=== PATIENT | female | born 1945 | race Caucasian/White ===

== ENCOUNTER 2023-08-09 20:10 | Inpatient (IN) | payer MEDICARE, BC ==
[~2023-08-09] VITALS: Ht 167.6 cm; Wt 97.5 kg
[2023-08-09 20:42] LABS: BASOPHILS # (AUTO) 0.1 X10'3 (0-0.2); EOSINOPHILS # (AUTO) 0.2 X10'3 (0-0.9); EOSINOPHILS % (AUTO) 3.2 % (0-6); HEMOGLOBIN 10.8 g/dl (12.0-16.0); LYMPHOCYTES # (AUTO) 0.7 X10'3 (1.1-4.8); LYMPHOCYTES % (AUTO) 9.5 % (21-51); MEAN CORPUSCULAR HEMOGLOBIN 30.3 PG (27.0-31.0); MEAN CORPUSCULAR HGB CONC 32.8 g/dL (33.0-36.5); MEAN CORPUSCULAR VOLUME 92.4 FL (78-98); MEAN PLATELET VOLUME 8.7 FL (7.4-10.4); MONOCYTES # (AUTO) 0.7 X10'3 (0-0.9); MONOCYTES % (AUTO) 10.3 % (2-12); NEUTROPHILS # (AUTO) 5.5 X10'3 (1.8-7.7); PLATELET COUNT 252 X10'3 (140-440); RED BLOOD COUNT 3.57 X10'6 (4.20-5.60); WHITE BLOOD COUNT 7.2 X10'3 (4.5-11.0)
[2023-08-09 20:55] LABS: ALANINE AMINOTRANSFERASE 14 U/L (12-78); ALBUMIN 3.2 G/DL (3.4-5.0); ALBUMIN/GLOBULIN RATIO 0.9 (1.1-1.5); ALKALINE PHOSPHATASE 58 IU/L (46-116); ANION GAP 12 (8-16); ASPARTATE AMINO TRANSFERASE 14 U/L (10-37); BILIRUBIN,TOTAL 0.5 MG/DL (0.1-1.0); BLOOD UREA NITROGEN 77 MG/DL (7-18); BUN/CREATININE RATIO 27.8 (10.0-20.0); CALCIUM 8.1 MG/DL (8.5-10.1); CHLORIDE 111 MMOL/L (99-107); CREATININE 2.77 MG/DL (0.40-0.90); GLUCOSE 161 MG/DL (70-104); POTASSIUM 4.1 MMOL/L (3.5-5.1); SODIUM 145 MMOL/L (135-145); TOTAL CARBON DIOXIDE 22.1 MMOL/L (24-32); TOTAL PROTEIN 6.7 G/DL (6.4-8.2); eCRCL 16 ML/MIN; eGFR 17 ML/MIN
[2023-08-09 21:03] LABS: AMYLASE 77 U/L (25-115); LIPASE 139 U/L (16-77)
[2023-08-10] MEDS: albuterol 2.5 MG/3 ML nebule NEB ONE (09:25)
[2023-08-10] MEDS: normal saline 1000ML IV soln IVB ONE (09:43)
[2023-08-10] MEDS: ondansetron/PF 4mg/2ml inj IV ONE (09:45)
[2023-08-10] MEDS: morphine 2 MG/ML inj. syringe IV ONE (09:46)
[2023-08-10] MEDS: aspirin 81mg tab.chew PO ONE ×2 (09:49→22:07)
[2023-08-10 11:03] VITALS: PULSE 72; PULSE 73; RESP 20; RESP 24; O2SAT 98
[2023-08-10 11:10] LABS: ALANINE AMINOTRANSFERASE 13 U/L (12-78); ALBUMIN/GLOBULIN RATIO 0.9 (1.1-1.5); ALKALINE PHOSPHATASE 53 IU/L (46-116); ASPARTATE AMINO TRANSFERASE 13 U/L (10-37); BILIRUBIN,DIRECT 0.2 MG/DL (0-0.3); BILIRUBIN,TOTAL 0.5 MG/DL (0.1-1.0); MAGNESIUM 2.3 MG/DL (1.5-2.4); PHOSPHORUS 4.9 MG/DL (2.3-4.5); TOTAL PROTEIN 6.3 G/DL (6.4-8.2)
[2023-08-10] MEDS ORDERED: magnesium 4gm in 100ml NS 100 ML IV PRN (11:15)
[2023-08-10] MEDS ORDERED: potassium Cl 20 mEq SR tablet PO PRN ×2 (11:15)
[2023-08-10] MEDS ORDERED: magnesium hydroxide 30ml (MOM) UD suspension PO PRN (11:15)
[2023-08-10] MEDS ORDERED: magnesium Cl slow-release 64mg tablet PO PRN (11:15)
[2023-08-10] MEDS ORDERED: normal saline 1000ml 1,000 ML IV SCH (11:15)
[2023-08-10] MEDS ORDERED: magnesium 2GM in 50ml NS 50 ML IV PRN (11:15)
[2023-08-10] MEDS ORDERED: potassium Cl 40MEQ/1/2NS 520ml 520 ML IV PRN (11:15)
[2023-08-10] MEDS ORDERED: HYDROcodone/acetaminophen 5mg/325mg tablet PO PRN (11:15)
[2023-08-10 11:53] LABS: PRO BRAIN NATRIURETIC PEPTIDE > 30000 PG/ML (0-450)
[2023-08-10 12:31] LABS: BILIRUBIN,URINE NEGATIVE (Neg); CLARITY,URINE CLOUDY (Clear); COLOR,URINE YELLOW (Yellow); GLUCOSE, URINE NEGATIVE (Neg); KETONES,URINE NEGATIVE (Neg); LEUKOCYTE ESTERASE ,URINE NEGATIVE (Neg); NITRITES, URINE NEGATIVE (Neg); OCCULT BLOOD,URINE TRACE-INTACT (Neg); PH,URINE 5.5 (4.8-8.0); PROTEIN,URINE 100 mg/dl (Neg); UROBILINOGEN,URINE 0.2 E.U/dL (0.2-1.0)
[2023-08-10 12:33] LABS: UA COLLECTION TYPE VOIDED
[2023-08-10 12:38] LABS: MUCUS STRANDS FEW /LPF (Neg); SQUAMOUS EPITHELIAL CELL,UR MANY /LPF (FEW)
[2023-08-10 12:39] LABS: BACTERIA,URINE 3+ /HPF (Neg); RBC,URINE 0-2 /HPF (0-2); WBC,URINE 0-4 /HPF (0-4)
[2023-08-10] MEDS ORDERED: albuterol 2.5 MG/3 ML nebule NEB PRN (12:45)
[2023-08-10 13:17] LABS: POTASSIUM 4.3 MMOL/L (3.5-5.1)
[2023-08-10] MEDS: furosemide 10 MG/1 ML 10ml inj IV ONE (13:44)
[2023-08-10] MEDS ORDERED: METO-395 PO (15:49)
[2023-08-10] MEDS ORDERED: FURO20TA4 PO (15:49)
[2023-08-10] MEDS ORDERED: APIX5TAB3 PO (15:49)
[2023-08-10] MEDS ORDERED: LISI10TA27 PO (15:49)
[2023-08-10] MEDS ORDERED: EVOL140P3 SQ (15:52)
[2023-08-10] MEDS ORDERED: LINA5TAB4 PO (15:52)
[2023-08-10] MEDS ORDERED: CHOL100012 PO (15:55)
[2023-08-10] MEDS ORDERED: CYAN-34 PO (15:55)
[2023-08-10] MEDS: docusate sod 100mg capsule PO SCH (20:00)
[2023-08-10] MEDS: K and/or MAG REPLACEMENT MC SCH (20:18)
[2023-08-10 20:19] VITALS: PULSE 83; RESP 20; O2SAT 96
[2023-08-10] MEDS: DOBUTamine-DoBUTrex 500mg/D5W 250 ML IV SCH ×2 (20:35→21:33)
[2023-08-10] MEDS: furosemide 10 MG/1 ML 10ml inj IV SCH (20:35)
[2023-08-10] MEDS: heparin, porcine 5000 units/ml vial SQ SCH (20:36)
[2023-08-10] MEDS: normal saline 500ml IV soln 500 ML IV ONE (21:39)
[2023-08-10] MEDS: ondansetron/PF 4mg/2ml inj IV PRN (21:52)
[2023-08-10] MEDS: digoxin 250mcg/ml 2ml ampule IV ONE (22:15)
[2023-08-10] MEDS ORDERED: albumin (human) 25% 100ml IV 100 ML in dextrose 5% water 500ml 400 ML IV ONE (22:15)
[2023-08-10] MEDS ORDERED: LIDOcaine 2% 10ml TOPICAL JELLY (Urojet) TP ONE (22:15)
[2023-08-10] MEDS: methylPREDNISolone sod succ 125mg/2ml vial IV ONE (22:20)
[2023-08-10] MEDS: ipratropium/albuterol 3ml nebule NEB SCH (23:00)
[2023-08-10] MEDS: albumin (Human) 5% 250ml 250 ML IV ONE (23:29)
[2023-08-10] MEDS: CefTRIAXone/D5W-Rocephin 1gm 50 ML IV SCH (23:29)
[2023-08-11 00:01] LABS: APTT 26 SECONDS (22-32); PROTHROMBIN TIME 11.1 SECONDS (9.0-12.0)
[2023-08-11] MEDS: albumin (Human) 5% 250ml 250 ML IV ONE (00:01)
[2023-08-11 00:55] LABS: C-REACTIVE PROTEIN 1.38 MG/DL (0.0-0.5); CREATINE KINASE 51 U/L (26-192); LACTATE DEHYDROGENASE 203 U/L (81-234); LIPASE 131 U/L (16-77); URIC ACID 10.6 MG/DL (2.5-6.2)
[2023-08-11 01:47] LABS: PRO BRAIN NATRIURETIC PEPTIDE > 30000 PG/ML (0-450)
[2023-08-11 03:04] VITALS: PULSE 70; RESP 16; O2SAT 96
[2023-08-11 03:11] VITALS: PULSE 72; RESP 16
[2023-08-11 06:02] LABS: BILIRUBIN,URINE NEGATIVE (Neg); CLARITY,URINE SLIGHTLY CLOUDY (Clear); COLOR,URINE STRAW (Yellow); GLUCOSE, URINE NEGATIVE (Neg); KETONES,URINE NEGATIVE (Neg); LEUKOCYTE ESTERASE ,URINE NEGATIVE (Neg); NITRITES, URINE NEGATIVE (Neg); OCCULT BLOOD,URINE NEGATIVE (Neg); PROTEIN,URINE 30 mg/dl (Neg); UROBILINOGEN,URINE 0.2 E.U/dL (0.2-1.0)
[2023-08-11 06:08] LABS: UA COLLECTION TYPE CLN CATCH MIDSTREAM
[2023-08-11 06:09] LABS: BACTERIA,URINE 3+ /HPF (Neg); MUCUS STRANDS NONE SEEN /LPF (Neg); RBC,URINE NONE SEEN /HPF (0-2); SQUAMOUS EPITHELIAL CELL,UR MODERATE /LPF (FEW); WBC,URINE 0-4 /HPF (0-4)
[2023-08-11 06:35] LABS: BASOPHILS % (AUTO) 0.4 % (0-1); EOSINOPHILS % (AUTO) 0.1 % (0-6); HEMATOCRIT 32.3 % (35.0-45.0); HEMOGLOBIN 10.4 g/dl (12.0-16.0); LYMPHOCYTES # (AUTO) 0.2 X10'3 (1.1-4.8); MEAN CORPUSCULAR HEMOGLOBIN 29.9 PG (27.0-31.0); MEAN CORPUSCULAR VOLUME 93.3 FL (78-98); MEAN PLATELET VOLUME 8.8 FL (7.4-10.4); MONOCYTES # (AUTO) 0.1 X10'3 (0-0.9); MONOCYTES % (AUTO) 1.7 % (2-12); NEUTROPHILS # (AUTO) 3.8 X10'3 (1.8-7.7); NEUTROPHILS % (AUTO) 91.8 % (42-75); PLATELET COUNT 250 X10'3 (140-440); RED BLOOD COUNT 3.46 X10'6 (4.20-5.60); RED CELL DISTRIBUTION WIDTH 16.3 % (11.5-14.5); WHITE BLOOD COUNT 4.1 X10'3 (4.5-11.0)
[2023-08-11 06:46] LABS: ALANINE AMINOTRANSFERASE 14 U/L (12-78); ALBUMIN 3.2 G/DL (3.4-5.0); ALKALINE PHOSPHATASE 50 IU/L (46-116); ANION GAP 13 (8-16); ASPARTATE AMINO TRANSFERASE 12 U/L (10-37); BILIRUBIN,TOTAL 0.3 MG/DL (0.1-1.0); BLOOD UREA NITROGEN 80 MG/DL (7-18); BUN/CREATININE RATIO 28.7 (10.0-20.0); CALCIUM 8.3 MG/DL (8.5-10.1); CHLORIDE 113 MMOL/L (99-107); CHOL/HDL RATIO 2.2 (0.00-4.99); CHOLESTEROL 76 MG/DL (0-200); CREATININE 2.79 MG/DL (0.40-0.90); GLUCOSE 186 MG/DL (70-104); HDL CHOLESTEROL 34 MG/DL (35-60); LDL CHOLESTEROL 29 MG/DL (50-100); MAGNESIUM 2.2 MG/DL (1.5-2.4); PHOSPHORUS 5.4 MG/DL (2.3-4.5); POTASSIUM 5.1 MMOL/L (3.5-5.1); SODIUM 147 MMOL/L (135-145); TOTAL CARBON DIOXIDE 21.1 MMOL/L (24-32); TOTAL PROTEIN 6.5 G/DL (6.4-8.2); TRIGLYCERIDES 56 MG/DL (20-135); eCRCL 16 ML/MIN; eGFR 17 ML/MIN
[2023-08-11 06:48] LABS: APTT 27 SECONDS (22-32)
[2023-08-11] MEDS: LidoCAINE 2% Topical Jelly 11mL syringe TOP ONE (07:53)
[2023-08-11] MEDS: azithromycin/NS 500mg/250ml 250 ML IV SCH (08:00)
[2023-08-11] MEDS: furosemide 20 MG/2 ML vial IV SCH (08:15)
[2023-08-11] MEDS: DOBUTamine-DoBUTrex 500mg/D5W 250 ML IV SCH ×3 (11:30→22:29)
[2023-08-11] MEDS: furosemide 10 MG/1 ML 10ml inj IV SCH (17:00)
[2023-08-11] MEDS: furosemide 20 MG/2 ML vial IV ONE (17:51)
[2023-08-11] MEDS: amiodarone 200mg tablet PO SCH (18:27)
[2023-08-11 19:44] VITALS: PULSE 74; RESP 26; O2SAT 96
[2023-08-11] MEDS: apixaban 5mg tablet PO SCH (20:00)
[2023-08-11] MEDS: metoprolol succinate 25mg (24-HOUR) SR. Tablet PO SCH (20:00)
[2023-08-11] MEDS: furosemide 10 MG/1 ML 10ml inj IV ONE (21:00)
[2023-08-11 21:40] LABS: ALANINE AMINOTRANSFERASE 15 U/L (12-78); ALKALINE PHOSPHATASE 46 IU/L (46-116); ANION GAP 14 (8-16); ASPARTATE AMINO TRANSFERASE 9 U/L (10-37); BILIRUBIN,TOTAL 0.3 MG/DL (0.1-1.0); BLOOD UREA NITROGEN 79 MG/DL (7-18); BUN/CREATININE RATIO 28.9 (10.0-20.0); CALCIUM 8.1 MG/DL (8.5-10.1); CHLORIDE 113 MMOL/L (99-107); CREATININE 2.73 MG/DL (0.40-0.90); GLUCOSE 238 MG/DL (70-104); POTASSIUM 4.9 MMOL/L (3.5-5.1); SODIUM 147 MMOL/L (135-145); TOTAL CARBON DIOXIDE 20.2 MMOL/L (24-32); TOTAL PROTEIN 6.1 G/DL (6.4-8.2); eCRCL 17 ML/MIN; eGFR 17 ML/MIN
[2023-08-11] MEDS: amiodarone 150mg/dext, iso-os 100 ML IV ONE (21:45)
[2023-08-11] MEDS: amiodarone/D5 360MG/200ML BAG 200 ML IV SCH (22:08)
[2023-08-12] VITALS (20 sets, daily range): BP systolic 108–135; BP diastolic 54–66; PULSE 70–98; RESP 16–25; TEMP 97.6–98.2; O2SAT 94–98
[2023-08-12] MEDS: acetaminophen 325mg tablet PO PRN (04:41)
[2023-08-12 06:51] LABS: BASOPHILS % (AUTO) 0.4 % (0-1); EOSINOPHILS % (AUTO) 0 % (0-6); HEMATOCRIT 29.6 % (35.0-45.0); HEMOGLOBIN 9.6 g/dl (12.0-16.0); LYMPHOCYTES # (AUTO) 0.5 X10'3 (1.1-4.8); LYMPHOCYTES % (AUTO) 6.5 % (21-51); MEAN CORPUSCULAR HEMOGLOBIN 29.8 PG (27.0-31.0); MEAN CORPUSCULAR HGB CONC 32.3 g/dL (33.0-36.5); MEAN CORPUSCULAR VOLUME 92.2 FL (78-98); MEAN PLATELET VOLUME 9.1 FL (7.4-10.4); MONOCYTES # (AUTO) 0.7 X10'3 (0-0.9); MONOCYTES % (AUTO) 8.3 % (2-12); NEUTROPHILS % (AUTO) 84.8 % (42-75); PLATELET COUNT 246 X10'3 (140-440); RED BLOOD COUNT 3.21 X10'6 (4.20-5.60); RED CELL DISTRIBUTION WIDTH 15.6 % (11.5-14.5); WHITE BLOOD COUNT 8.2 X10'3 (4.5-11.0)
[2023-08-12 07:06] LABS: APTT 27 SECONDS (22-32); PROTHROMBIN TIME 11.1 SECONDS (9.0-12.0)
[2023-08-12 07:28] LABS: ALANINE AMINOTRANSFERASE 11 U/L (12-78); ALKALINE PHOSPHATASE 42 IU/L (46-116); ANION GAP 14 (8-16); ASPARTATE AMINO TRANSFERASE 7 U/L (10-37); BILIRUBIN,TOTAL 0.2 MG/DL (0.1-1.0); BLOOD UREA NITROGEN 75 MG/DL (7-18); BUN/CREATININE RATIO 27.4 (10.0-20.0); CALCIUM 8.2 MG/DL (8.5-10.1); CHLORIDE 112 MMOL/L (99-107); CREATININE 2.74 MG/DL (0.40-0.90); GLUCOSE 204 MG/DL (70-104); MAGNESIUM 2.1 MG/DL (1.5-2.4); PHOSPHORUS 4.2 MG/DL (2.3-4.5); POTASSIUM 4.6 MMOL/L (3.5-5.1); SODIUM 145 MMOL/L (135-145); TOTAL CARBON DIOXIDE 18.6 MMOL/L (24-32); eCRCL 17 ML/MIN; eGFR 17 ML/MIN
[2023-08-12] MEDS: lisinopril 10 MG tablet PO SCH (07:34)
[2023-08-12] MEDS: HYDROcodone/acetaminophen 10/325mg tab PO PRN (07:34)
[2023-08-12] MEDS: cyanocobalamin 500mcg tablet PO SCH (07:35)
[2023-08-12] MEDS: cholecalciferol (vitamin D3) 1,000 unit (25mcg) tablet PO SCH (07:35)
[2023-08-12] MEDS: ketorolac tromethamine 15mg/ml inj. IM ONE ×2 (10:35→11:27)
[2023-08-12] MEDS: furosemide 10 MG/1 ML 10ml inj IV SCH (10:37)
[2023-08-12] MEDS ORDERED: ipratropium/albuterol 3ml nebule NEB PRN (11:55)
[2023-08-12] MEDS ORDERED: ketorolac tromethamine 15mg/ml inj. IV SCH ×2 (14:00)
[2023-08-12] MEDS: ketorolac tromethamine 15mg/ml inj. IV SCH (17:26)
[2023-08-12] MEDS: heparin, porcine 5000 units/ml vial SQ SCH (17:47)
[2023-08-12] MEDS: amiodarone/D5 360MG/200ML BAG 200 ML IV SCH (17:52)
[2023-08-13] VITALS (8 sets, daily range): BP systolic 107–131; BP diastolic 51–69; PULSE 67–88; RESP 14–18; TEMP 97.3–98.7; O2SAT 92–98
[2023-08-13] MEDS: mag hydrox/Alum hydrox/simeth 30ml oral suspension PO PRN (02:13)
[2023-08-13 06:57] LABS: APTT 27 SECONDS (22-32); PROTHROMBIN TIME 10.9 SECONDS (9.0-12.0)
[2023-08-13 07:40] LABS: ALANINE AMINOTRANSFERASE 13 U/L (12-78); ALBUMIN 3.4 G/DL (3.4-5.0); ALBUMIN/GLOBULIN RATIO 1.1 (1.1-1.5); ALKALINE PHOSPHATASE 47 IU/L (46-116); ANION GAP 7 (8-16); ASPARTATE AMINO TRANSFERASE 11 U/L (10-37); BILIRUBIN,TOTAL 0.4 MG/DL (0.1-1.0); BLOOD UREA NITROGEN 88 MG/DL (7-18); BUN/CREATININE RATIO 28.2 (10.0-20.0); CALCIUM 9.2 MG/DL (8.5-10.1); CHLORIDE 114 MMOL/L (99-107); CREATININE 3.12 MG/DL (0.40-0.90); GLUCOSE 125 MG/DL (70-104); MAGNESIUM 2.7 MG/DL (1.5-2.4); PHOSPHORUS 5.4 MG/DL (2.3-4.5); PRO BRAIN NATRIURETIC PEPTIDE 571 PG/ML (0-450); SODIUM 146 MMOL/L (135-145); TOTAL CARBON DIOXIDE 24.7 MMOL/L (24-32); TOTAL PROTEIN 6.5 G/DL (6.4-8.2); eCRCL 15 ML/MIN; eGFR 15 ML/MIN
[2023-08-13 07:46] LABS: BASOPHILS # (AUTO) 0.1 X10'3 (0-0.2); BASOPHILS % (AUTO) 1.1 % (0-1); EOSINOPHILS # (AUTO) 0.2 X10'3 (0-0.9); EOSINOPHILS % (AUTO) 2.8 % (0-6); HEMATOCRIT 33.7 % (35.0-45.0); HEMOGLOBIN 10.4 g/dl (12.0-16.0); LYMPHOCYTES # (AUTO) 1.4 X10'3 (1.1-4.8); MEAN CORPUSCULAR HEMOGLOBIN 29.6 PG (27.0-31.0); MEAN CORPUSCULAR HGB CONC 30.9 g/dL (33.0-36.5); MEAN CORPUSCULAR VOLUME 95.8 FL (78-98); MEAN PLATELET VOLUME 8.5 FL (7.4-10.4); MONOCYTES # (AUTO) 0.6 X10'3 (0-0.9); MONOCYTES % (AUTO) 7.1 % (2-12); NEUTROPHILS # (AUTO) 6.3 X10'3 (1.8-7.7); PLATELET COUNT 264 X10'3 (140-440); RED BLOOD COUNT 3.52 X10'6 (4.20-5.60); WHITE BLOOD COUNT 8.7 X10'3 (4.5-11.0)
[2023-08-13] MEDS: EVOLOCUMAB SQ SCH (08:00)
[2023-08-13] MEDS: DOBUTamine-DoBUTrex 500mg/D5W 250 ML IV SCH (09:08)
[2023-08-13] MEDS: sodium bicarbonate 1meq/ml inj 150 ML in dextrose 5%-water 1,000 ML IV SCH (12:40)
[2023-08-13] MEDS: amiodarone 200mg tablet PO SCH (15:15)
[2023-08-13 17:08] LABS: TOTAL PROTEIN,URINE RANDOM 61.5 MG/DL
[2023-08-13] MEDS ORDERED: amiodarone 200mg tablet PO SCH (20:00)
[2023-08-13] MEDS: acetylcysteine 200 MG/ml 4ml vial PO SCH (21:43)
[2023-08-14] VITALS (17 sets, daily range): BP systolic 122–149; BP diastolic 48–68; PULSE 61–77; RESP 16–24; TEMP 97.3–98.3; O2SAT 93–97
[2023-08-14 07:37] LABS: BASOPHILS # (AUTO) 0.1 X10'3 (0-0.2); EOSINOPHILS # (AUTO) 0.4 X10'3 (0-0.9); EOSINOPHILS % (AUTO) 4.7 % (0-6); HEMATOCRIT 31.2 % (35.0-45.0); LYMPHOCYTES # (AUTO) 0.9 X10'3 (1.1-4.8); LYMPHOCYTES % (AUTO) 10.5 % (21-51); MEAN CORPUSCULAR HEMOGLOBIN 29.5 PG (27.0-31.0); MEAN CORPUSCULAR VOLUME 92.1 FL (78-98); MEAN PLATELET VOLUME 9.1 FL (7.4-10.4); MONOCYTES # (AUTO) 0.8 X10'3 (0-0.9); NEUTROPHILS # (AUTO) 6.5 X10'3 (1.8-7.7); NEUTROPHILS % (AUTO) 74.8 % (42-75); PLATELET COUNT 266 X10'3 (140-440); PROTHROMBIN TIME 10.9 SECONDS (9.0-12.0); RED BLOOD COUNT 3.38 X10'6 (4.20-5.60); RED CELL DISTRIBUTION WIDTH 15.6 % (11.5-14.5); WHITE BLOOD COUNT 8.7 X10'3 (4.5-11.0)
[2023-08-14 08:05] LABS: ALANINE AMINOTRANSFERASE 12 U/L (12-78); ALBUMIN 2.9 G/DL (3.4-5.0); ALKALINE PHOSPHATASE 43 IU/L (46-116); ANION GAP 10 (8-16); ASPARTATE AMINO TRANSFERASE 10 U/L (10-37); BILIRUBIN,TOTAL 0.3 MG/DL (0.1-1.0); BLOOD UREA NITROGEN 69 MG/DL (7-18); BUN/CREATININE RATIO 25.1 (10.0-20.0); CALCIUM 8.1 MG/DL (8.5-10.1); CHLORIDE 110 MMOL/L (99-107); CREATININE 2.75 MG/DL (0.40-0.90); GLUCOSE 117 MG/DL (70-104); PHOSPHORUS 3.6 MG/DL (2.3-4.5); POTASSIUM 4.4 MMOL/L (3.5-5.1); SODIUM 144 MMOL/L (135-145); TOTAL CARBON DIOXIDE 24.1 MMOL/L (24-32); TOTAL PROTEIN 5.7 G/DL (6.4-8.2); eCRCL 17 ML/MIN; eGFR 17 ML/MIN
[2023-08-14] MEDS ORDERED: verapamil 2.5 mg/ml inj IV ONE (10:08)
[2023-08-14] MEDS ORDERED: LIDOcaine 1% (10mg/ml) 2ml vial ONE (10:08)
[2023-08-14] MEDS ORDERED: midazolam 1 mg/ML 2ml injection ONE (10:08)
[2023-08-14] MEDS ORDERED: fentaNYL/PF 50MCG/1 ML 2ML syringe ONE (10:08)
[2023-08-14] MEDS ORDERED: heparin 1,000unit/ml 10ml vial 10 ML ONE (10:09)
[2023-08-14] MEDS ORDERED: nitroGLYCERIN 500mcg/5mL D5W 5 ML IV ONE (10:09)
[2023-08-14] MEDS ORDERED: iohexol 350MG/ML 100ml bottle IV ONE (10:09)
[2023-08-14] MEDS ORDERED: iohexol 350 MG/ML 50ML vial IV ONE ×2 (10:09→12:06)
[2023-08-14 12:33] LABS: PRO BRAIN NATRIURETIC PEPTIDE > 30000 PG/ML (0-450)
[2023-08-14 12:40] LABS: ISTAT HGB ART 10.2 g/dl (12.0-16.0); ISTAT HGB MIX 9.5 g/dl (12.0-16.0); ISTAT Hct ART 30 %PCV (35-45); ISTAT Hct MIX 28 %PCV (35-45); ISTAT O2 SATURATION ARTERIAL 95 % (95-98); ISTAT O2 SATURATION MIX VENOUS 60 % (60-80); ISTAT SOURCE BLNK
[2023-08-15] VITALS (22 sets, daily range): BP systolic 104–146; BP diastolic 48–87; PULSE 67–83; RESP 12–27; TEMP 97.8–99; O2SAT 89–98
[2023-08-15 06:04] LABS: BASOPHILS % (AUTO) 0.6 % (0-1); EOSINOPHILS # (AUTO) 0.8 X10'3 (0-0.9); EOSINOPHILS % (AUTO) 9.7 % (0-6); HEMATOCRIT 33.1 % (35.0-45.0); HEMOGLOBIN 10.6 g/dl (12.0-16.0); LYMPHOCYTES # (AUTO) 0.9 X10'3 (1.1-4.8); LYMPHOCYTES % (AUTO) 10.5 % (21-51); MEAN CORPUSCULAR HEMOGLOBIN 29.1 PG (27.0-31.0); MEAN CORPUSCULAR HGB CONC 32.1 g/dL (33.0-36.5); MEAN CORPUSCULAR VOLUME 90.7 FL (78-98); MONOCYTES # (AUTO) 0.7 X10'3 (0-0.9); MONOCYTES % (AUTO) 8.8 % (2-12); NEUTROPHILS # (AUTO) 5.8 X10'3 (1.8-7.7); NEUTROPHILS % (AUTO) 70.4 % (42-75); PLATELET COUNT 267 X10'3 (140-440); RED BLOOD COUNT 3.65 X10'6 (4.20-5.60); RED CELL DISTRIBUTION WIDTH 15.6 % (11.5-14.5); WHITE BLOOD COUNT 8.2 X10'3 (4.5-11.0)
[2023-08-15 06:27] LABS: ALANINE AMINOTRANSFERASE 14 U/L (12-78); ALBUMIN/GLOBULIN RATIO 0.9 (1.1-1.5); ALKALINE PHOSPHATASE 48 IU/L (46-116); ANION GAP 8 (8-16); ASPARTATE AMINO TRANSFERASE 12 U/L (10-37); BILIRUBIN,TOTAL 0.5 MG/DL (0.1-1.0); BLOOD UREA NITROGEN 61 MG/DL (7-18); BUN/CREATININE RATIO 21.1 (10.0-20.0); CALCIUM 8.5 MG/DL (8.5-10.1); CHLORIDE 108 MMOL/L (99-107); CREATININE 2.89 MG/DL (0.40-0.90); GLUCOSE 131 MG/DL (70-104); MAGNESIUM 2.1 MG/DL (1.5-2.4); PHOSPHORUS 3.9 MG/DL (2.3-4.5); POTASSIUM 4.3 MMOL/L (3.5-5.1); SODIUM 145 MMOL/L (135-145); TOTAL CARBON DIOXIDE 29.4 MMOL/L (24-32); TOTAL PROTEIN 6.2 G/DL (6.4-8.2); eCRCL 16 ML/MIN; eGFR 16 ML/MIN
[2023-08-15 07:06] LABS: PRO BRAIN NATRIURETIC PEPTIDE > 30000 PG/ML (0-450)
[2023-08-15] MEDS: DOBUTamine-DoBUTrex 500mg/D5W 250 ML IV SCH (11:35)
[2023-08-16] VITALS (21 sets, daily range): BP systolic 116–147; BP diastolic 54–69; PULSE 68–82; RESP 12–26; TEMP 97.3–98.4; O2SAT 65–98
[2023-08-16] MEDS: morphine 2 MG/ML inj. syringe IV ONE (04:10)
[2023-08-16] MEDS: nitroGLYCERIN 0.4mg SUBLingual tab SL STA (04:31)
[2023-08-16 08:00] LABS: PRO BRAIN NATRIURETIC PEPTIDE > 30000 PG/ML (0-450)
[2023-08-16 08:41] LABS: ALBUMIN 2.9 G/DL (3.4-5.0); ANION GAP 9 (8-16); BLOOD UREA NITROGEN 54 MG/DL (7-18); BUN/CREATININE RATIO 19.6 (10.0-20.0); CALCIUM 8.3 MG/DL (8.5-10.1); CHLORIDE 107 MMOL/L (99-107); CREATININE 2.75 MG/DL (0.40-0.90); GLUCOSE 100 MG/DL (70-104); SODIUM 147 MMOL/L (135-145); TOTAL CARBON DIOXIDE 31.5 MMOL/L (24-32); eCRCL 17 ML/MIN; eGFR 17 ML/MIN
[2023-08-16] MEDS: pantoprazole 40mg Tablet.DR PO SCH (08:59)
[2023-08-16] MEDS: ondansetron 4mg rapidly disintigrating tab PO PRN (12:39)
[2023-08-16] MEDS ORDERED: IODIXANOL 320 MG/ML INFUS..BTL 100ML IV ONE (16:47)
[2023-08-17] VITALS (16 sets, daily range): BP systolic 99–133; BP diastolic 44–65; PULSE 66–92; RESP 12–24; TEMP 97.1–98.3; O2SAT 92–99
[2023-08-17] MEDS: LORazepam 0.5 MG tablet PO PRN (02:14)
[2023-08-17 09:18] LABS: BASOPHILS # (AUTO) 0.2 X10'3 (0-0.2); BASOPHILS % (AUTO) 3.1 % (0-1); EOSINOPHILS # (AUTO) 0.7 X10'3 (0-0.9); EOSINOPHILS % (AUTO) 8.4 % (0-6); HEMATOCRIT 30.1 % (35.0-45.0); HEMOGLOBIN 9.8 g/dl (12.0-16.0); LYMPHOCYTES # (AUTO) 0.8 X10'3 (1.1-4.8); LYMPHOCYTES % (AUTO) 9.8 % (21-51); MEAN CORPUSCULAR HEMOGLOBIN 29.6 PG (27.0-31.0); MEAN CORPUSCULAR HGB CONC 32.5 g/dL (33.0-36.5); MEAN CORPUSCULAR VOLUME 91.3 FL (78-98); MEAN PLATELET VOLUME 8.7 FL (7.4-10.4); MONOCYTES # (AUTO) 0.9 X10'3 (0-0.9); MONOCYTES % (AUTO) 11.4 % (2-12); NEUTROPHILS # (AUTO) 5.4 X10'3 (1.8-7.7); NEUTROPHILS % (AUTO) 67.3 % (42-75); PLATELET COUNT 248 X10'3 (140-440); RED CELL DISTRIBUTION WIDTH 15.4 % (11.5-14.5)
[2023-08-17 09:32] LABS: ALBUMIN 2.9 G/DL (3.4-5.0); ANION GAP 7 (8-16); BLOOD UREA NITROGEN 49 MG/DL (7-18); CALCIUM 8.5 MG/DL (8.5-10.1); CHLORIDE 106 MMOL/L (99-107); CREATININE 2.89 MG/DL (0.40-0.90); GLUCOSE 106 MG/DL (70-104); SODIUM 147 MMOL/L (135-145); TOTAL CARBON DIOXIDE 33.9 MMOL/L (24-32); eCRCL 16 ML/MIN; eGFR 16 ML/MIN
[2023-08-18] VITALS (7 sets, daily range): BP systolic 108–129; BP diastolic 55–86; PULSE 67–72; RESP 17–24; TEMP 97.9–98; O2SAT 95–98
[2023-08-18 09:07] LABS: BASOPHILS # (AUTO) 0.1 X10'3 (0-0.2); EOSINOPHILS # (AUTO) 0.6 X10'3 (0-0.9); EOSINOPHILS % (AUTO) 6.2 % (0-6); HEMATOCRIT 30.6 % (35.0-45.0); HEMOGLOBIN 9.7 g/dl (12.0-16.0); LYMPHOCYTES # (AUTO) 0.9 X10'3 (1.1-4.8); LYMPHOCYTES % (AUTO) 9.6 % (21-51); MEAN CORPUSCULAR HEMOGLOBIN 29.4 PG (27.0-31.0); MEAN CORPUSCULAR HGB CONC 31.8 g/dL (33.0-36.5); MEAN CORPUSCULAR VOLUME 92.5 FL (78-98); MEAN PLATELET VOLUME 8.9 FL (7.4-10.4); MONOCYTES # (AUTO) 1.1 X10'3 (0-0.9); MONOCYTES % (AUTO) 12.3 % (2-12); NEUTROPHILS # (AUTO) 6.5 X10'3 (1.8-7.7); NEUTROPHILS % (AUTO) 70.9 % (42-75); PLATELET COUNT 253 X10'3 (140-440); RED CELL DISTRIBUTION WIDTH 15.4 % (11.5-14.5); WHITE BLOOD COUNT 9.1 X10'3 (4.5-11.0)
[2023-08-18 09:19] LABS: ALBUMIN 2.9 G/DL (3.4-5.0); ANION GAP 6 (8-16); BLOOD UREA NITROGEN 47 MG/DL (7-18); BUN/CREATININE RATIO 15.2 (10.0-20.0); CALCIUM 8.5 MG/DL (8.5-10.1); CHLORIDE 105 MMOL/L (99-107); GLUCOSE 107 MG/DL (70-104); POTASSIUM 4.4 MMOL/L (3.5-5.1); SODIUM 145 MMOL/L (135-145); TOTAL CARBON DIOXIDE 34.3 MMOL/L (24-32); eCRCL 15 ML/MIN; eGFR 15 ML/MIN
== END 2023-08-18 11:19 | disposition short-term general hospital (02) | DRG 286 ==
LOC: ER 20:10 → ED HOLD 08-10 11:16 → UNDOADMIN 08-10 11:16 → ED HOLD 08-10 18:53 → EDBEDREQ 08-11 22:28 → PCU 3S 08-12 00:15
PROVIDERS: ADMIT Internal Medicine; ATTEND Internal Medicine
PROC: 4A023N8 Measurement of Cardiac Sampling and Pressure, Bilateral, Percutaneous Approach (ICD-10-PCS; principal; 2023-08-14)
PROC: B2111ZZ Fluoroscopy of Multiple Coronary Arteries using Low Osmolar Contrast (ICD-10-PCS; 2023-08-14)
PROC: B2151ZZ Fluoroscopy of Left Heart using Low Osmolar Contrast (ICD-10-PCS; 2023-08-14)
PROC: [UNRECOGNIZED PROCEDURE] (2023-08-14)
PROC: B32T1ZZ Computerized Tomography (CT Scan) of Left Pulmonary Artery using Low Osmolar Contrast (ICD-10-PCS; 2023-08-16)
PROC: B3201ZZ Computerized Tomography (CT Scan) of Thoracic Aorta using Low Osmolar Contrast (ICD-10-PCS; 2023-08-16)
PROC: B32S1ZZ Computerized Tomography (CT Scan) of Right Pulmonary Artery using Low Osmolar Contrast (ICD-10-PCS; 2023-08-16)
DX: I13.0 Hypertensive heart and chronic kidney disease with heart failure and stage 1 through stage 4 chronic kidney disease, or unspecified chronic kidney disease (principal); I50.23 Acute on chronic systolic (congestive) heart failure; K85.00 Idiopathic acute pancreatitis without necrosis or infection; N17.0 Acute kidney failure with tubular necrosis; Z20.822 Contact with and (suspected) exposure to COVID-19; I48.0 Paroxysmal atrial fibrillation; N18.9 Chronic kidney disease, unspecified; E78.5 Hyperlipidemia, unspecified; E66.01 Morbid (severe) obesity due to excess calories; I25.10 Atherosclerotic heart disease of native coronary artery without angina pectoris; E11.22 Type 2 diabetes mellitus with diabetic chronic kidney disease; E11.21 Type 2 diabetes mellitus with diabetic nephropathy; E11.319 Type 2 diabetes mellitus with unspecified diabetic retinopathy without macular edema; E88.810 Metabolic syndrome; I35.0 Nonrheumatic aortic (valve) stenosis; I95.9 Hypotension, unspecified; Z91.040 Latex allergy status; Z91.011 Allergy to milk products; Z88.0 Allergy status to penicillin; Z91.013 Allergy to seafood; Z98.42 Cataract extraction status, left eye; Z98.41 Cataract extraction status, right eye; Z68.34 Body mass index [BMI] 34.0-34.9, adult
CPT/HCPCS: 36415; 71045; 71046; 71250; 71275; 74174; 74176; 75572; 76937; 78707; 80048; 80053; 80061; 80076; 81001; 82150; 82550; 82570; 82803; 82948; 83036; 83605; 83615; 83690; 83735; 83880; 83935; 84100; 84132; 84133; 84145; 84156; 84300; 84484; 84540; 84550; 85014; 85025; 85379; 85610; 85651; 85730; 86140; 87081; 87502; 87503; 87811; 93005; 93306; 93460; 93975; 94640; 94664; 94668; 94760; 96374; 96375; 97116; 97161; 97530; 97535; 99152; 99153; 99285; A4314; A4615; A6213; A6250; A6258; A9562; C1725; C1751; C1769; C1894; G0378; J0282; J0456; J0696; J1160; J1250; J1644; J1885; J1940; J2250; J2270; J2405; J2930; J3010; J3490; J7030; J7040; J7050; J7070; P9045; Q9967

== ENCOUNTER 2023-09-07 09:39 | Inpatient (IN) | payer MEDICARE, BC ==
[2023-09-05 12:43] LABS: BASOPHILS # (AUTO) 0.1 X10'3 (0-0.2); BASOPHILS % (AUTO) 1.7 % (0-1); BILIRUBIN,URINE NEGATIVE (Neg); CLARITY,URINE SLIGHTLY CLOUDY (Clear); COLOR,URINE YELLOW (Yellow); EOSINOPHILS # (AUTO) 1.2 X10'3 (0-0.9); EOSINOPHILS % (AUTO) 15.3 % (0-6); GLUCOSE, URINE 500 mg/dl (Neg); KETONES,URINE NEGATIVE (Neg); LEUKOCYTE ESTERASE ,URINE NEGATIVE (Neg); LYMPHOCYTES # (AUTO) 0.9 X10'3 (1.1-4.8); LYMPHOCYTES % (AUTO) 12.2 % (21-51); MEAN CORPUSCULAR HEMOGLOBIN 28.8 PG (27.0-31.0); MEAN CORPUSCULAR HGB CONC 31.2 g/dL (33.0-36.5); MEAN CORPUSCULAR VOLUME 92.3 FL (78-98); MEAN PLATELET VOLUME 8.7 FL (7.4-10.4); MONOCYTES # (AUTO) 0.7 X10'3 (0-0.9); MONOCYTES % (AUTO) 8.9 % (2-12); NEUTROPHILS # (AUTO) 4.8 X10'3 (1.8-7.7); NEUTROPHILS % (AUTO) 61.9 % (42-75); NITRITES, URINE NEGATIVE (Neg); OCCULT BLOOD,URINE TRACE-INTACT (Neg); PRE OP HEMATOCRIT 34.4 % (35.0-45.0); PRE OP PLATELET COUNT 389 X10'3 (140-440); PRE OP WHITE BLOOD COUNT 7.8 10'3 (4.8-10.8); PROTEIN,URINE 100 mg/dl (Neg); RED BLOOD COUNT 3.72 X10'6 (4.20-5.60); UROBILINOGEN,URINE 0.2 E.U/dL (0.2-1.0)
[2023-09-05 12:49] LABS: PRE OP HEMOGLOBIN 10.7 g/dL (12.0-16.0)
[2023-09-05 12:50] LABS: UA COLLECTION TYPE VOIDED
[2023-09-05 12:51] LABS: SQUAMOUS EPITHELIAL CELL,UR MANY /LPF (FEW)
[2023-09-05 12:52] LABS: FINE GRANULAR CAST 0-3 /LPF (NEGATIVE); HYALINE CASTS 0-3 /LPF (NEGATIVE); WBC,URINE 0-4 /HPF (0-4)
[2023-09-05 12:53] LABS: BACTERIA,URINE FEW /HPF (Neg)
[2023-09-05 12:57] LABS: PRE OP PROTIME 10.8 SECONDS (9.0-12.0)
[2023-09-05 13:14] LABS: ALBUMIN 3.6 G/DL (3.4-5.0); ALBUMIN/GLOBULIN RATIO 0.9 (1.1-1.5); ALKALINE PHOSPHATASE 65 IU/L (46-116); BLOOD UREA NITROGEN 53 MG/DL (7-18); CALCIUM 9.2 MG/DL (8.5-10.1); CHLORIDE 111 MMOL/L (99-107); CREATININE 2.95 MG/DL (0.40-0.90); PRE OP ALT 17 U/L (30-65); PRE OP ANION GAP 14 (8-16); PRE OP AST 13 U/L (10-37); PRE OP BILIRUB, TOTAL 0.4 MG/DL (0.0-1.0); PRE OP GLUCOSE 113 MG/DL (70-104); PRE OP POTASSIUM 4.5 MMOL/L (3.4-5.1); PRE OP SODIUM 148 MMOL/L (135-145); TOTAL CARBON DIOXIDE 23.1 MMOL/L (24-32); TOTAL PROTEIN 7.4 G/DL (6.4-8.2); eGFR 15 ML/MIN
[2023-09-05 13:38] LABS: HEMOGLOBIN A1C 5.7 % (4.5-6.2)
[2023-09-05 13:46] LABS: PRO BRAIN NATRIURETIC PEPTIDE > 30000 PG/ML (0-450)
[~2023-09-07] VITALS: Ht 166.4 cm; Wt 90.6 kg
[2023-09-07] VITALS (24 sets, daily range): BP systolic 110–177; BP diastolic 43–80; PULSE 55–66; RESP 12–20; TEMP 97–98.6; O2SAT 93–100
[2023-09-07] MEDS: DOCUMENT DATE & TIME OF BETA-BLOCKER PO ONE (05:30)
[2023-09-07] MEDS: cefazolin 2gm/D5W 100mL 100 ML IV ONE (05:30)
[~2023-09-07 09:39] MED LIST: APIX5TAB3 PO; CHOL100012 PO; CYAN-34 PO; DAPA10TA PO; EVOL140P3 SQ; FURO20TA4 PO; LINA5TAB4 PO; METO-395 PO; ondansetron/PF 4mg/2ml inj IV PRN; ringers solution, lacted 1,000 ML IV SCH
[2023-09-07] MEDS: famotidine 20mg tablet PO ONE (12:29)
[2023-09-07] MEDS: normal saline 1000ml 1,000 ML IV SCH ×2 (13:03→17:25)
[2023-09-07] MEDS: vancomycin 1,500 MG in NS 300ml IV soln IV ONE (13:03)
[2023-09-07] MEDS: aspirin 325mg tablet PO ONE (13:04)
[2023-09-07] MEDS: nitroPRUSSIDE (NIPRIDE) (200MCG/ML) 100ML Drip IV ONE (13:04)
[2023-09-07] MEDS: phenylephrine inj 50 MG in normal saline 250ml IV solN IV ONE (13:05)
[2023-09-07] MEDS ORDERED: LIDOcaine 1% (10mg/ml) 2ml vial ONE (15:41)
[2023-09-07] MEDS ORDERED: protamine sulf. 10mg/ml inj. IV ONE (15:54)
[2023-09-07] MEDS ORDERED: heparin 1,000 units/ml 10ml inj ONE (15:54)
[2023-09-07] MEDS ORDERED: iohexol 350MG/ML 100ml bottle IV ONE (15:56)
[2023-09-07] MEDS ORDERED: heparin 1,000 UNITS/NS 500ml 1,500 ML ONE (15:56)
[2023-09-07] MEDS ORDERED: LIDOcaine 1% 30ml preserv. free vial ONE (15:56)
[2023-09-07] MEDS: ringers solution, lacted 1,000 ML IV SCH (16:00)
[2023-09-07] MEDS ORDERED: meperidine/PF 25mg/ml syringe IV PRN (16:00)
[2023-09-07] MEDS ORDERED: proCHLORperazine 10 MG/2 ml inj IV PRN ×2 (16:00→17:25)
[2023-09-07] MEDS ORDERED: labetalol 20mg/4ml (5mg/ml) syringe IV PRN ×2 (16:00→17:25)
[2023-09-07] MEDS ORDERED: HYDROmorphone/PF 0.2 MG/ML SYRINGE IV PRN ×2 (16:00)
[2023-09-07] MEDS ORDERED: morphine 4 MG/ML inj SYRINge IV PRN (16:00)
[2023-09-07] MEDS ORDERED: fentaNYL/PF 50MCG/1 ML 2ML syringe ONE (16:01)
[2023-09-07] MEDS ORDERED: midazolam 1 mg/ML 2ml injection ONE (16:20)
[2023-09-07] MEDS: EVOLOCUMAB 140 MG/ML SQ SCH (16:20)
[2023-09-07] MEDS ORDERED: propofol inj 20 ML IV ONE ×2 (16:20)
[2023-09-07] MEDS ORDERED: acetaminophen 325mg tablet PO PRN (17:25)
[2023-09-07] MEDS ORDERED: ALPRAZolam 0.25mg tablet PO PRN (17:25)
[2023-09-07] MEDS ORDERED: ondansetron/PF 4mg/2ml inj IV PRN (17:25)
[2023-09-07] MEDS ORDERED: pantoprazole 40mg Tablet.DR PO PRN (17:25)
[2023-09-07] MEDS ORDERED: potassium Cl 40MEQ/270ML bag 250 ML IV PRN (17:25)
[2023-09-07] MEDS ORDERED: docusate sod 100mg capsule PO PRN (17:25)
[2023-09-07] MEDS ORDERED: diphenhydrAMINE 25mg capsule PO PRN (17:25)
[2023-09-07] MEDS ORDERED: potassium CL 10mEq/100ml bag 100 ML IV PRN (17:25)
[2023-09-07] MEDS ORDERED: magnesium 4gm in 100ml NS 100 ML IV PRN (17:25)
[2023-09-07] MEDS ORDERED: potassium Cl 20 mEq SR tablet PO PRN (17:25)
[2023-09-07] MEDS ORDERED: potassium Cl 20mEq/100mL bag 100 ML IV PRN (17:25)
[2023-09-07] MEDS ORDERED: magnesium 2GM in 50ml NS 50 ML IV PRN (17:25)
[2023-09-07] MEDS ORDERED: HYDROcodone/acetaminophen 5mg/325mg tablet PO PRN (17:25)
[2023-09-07] MEDS ORDERED: hydrALAZINE 20mg/ml inj. IV PRN (17:25)
[2023-09-07] MEDS ORDERED: potassium Cl 40MEQ/1/2NS 520ml 520 ML IV PRN (17:25)
[2023-09-07] MEDS ORDERED: labetalol 20mg/4ml (5mg/ml) syringe IV ONE (17:35)
[2023-09-07] MEDS ORDERED: morphine 4 MG/ML inj SYRINge IV ONE (17:42)
[2023-09-07] MEDS: ondansetron/PF 4mg/2ml inj IV PRN (18:06)
[2023-09-07] MEDS: furosemide 40mg/4ml inj IV ONE (18:06)
[2023-09-07] MEDS: acetaminophen 1,000mg/100ml IV 100 ML IV ONE (18:24)
[2023-09-07] MEDS: hydrALAZINE 20mg/ml inj. IV PRN (18:28)
[2023-09-07] MEDS: morphine 2 MG/ML inj. syringe IV PRN (18:49)
[2023-09-07] MEDS ORDERED: insulin Lispro (HumaLOG) vial - multi-dose SQ SCH (19:55)
[2023-09-07] MEDS ORDERED: glucagon, human recombinant 1mg kit SUBCUT PRN (19:55)
[2023-09-07] MEDS ORDERED: dextrose 50%-water 50ml dispensing syringe IV PRN ×2 (19:55)
[2023-09-07] MEDS ORDERED: DEXTROSE 15 GM of carb/4 tabs (each vial/BOTTLE has 4 tablets) PO PRN ×2 (19:55)
[2023-09-07] MEDS: insulin glargine (Lantus) pen - multi-dose SQ SCH (21:00)
[2023-09-07] MEDS: vancomycin/NS 1 GM ADD-VANTAGE 250 ML IV SCH (23:00)
[2023-09-07] MEDS: metoprolol succinate 25mg (24-HOUR) SR. Tablet PO SCH (23:00)
[2023-09-08] VITALS: BP 125/44; PULSE 57; RESP 14; TEMP 97.9; O2SAT 98
[2023-09-08] MEDS: sod chloride 0.9% 10ml flush syringe IV SCH (00:07)
[2023-09-08 01:00] VITALS: BP 110/60; PULSE 54; RESP 14; TEMP 98.1; O2SAT 98
[2023-09-08 02:00] VITALS: BP_SYST 138; BP_SYST 177; BP_DIAS 55; BP_DIAS 70; PULSE 84; RESP 15; TEMP 97.7; O2SAT 99
[2023-09-08 06:00] VITALS: BP 128/73; PULSE 57; RESP 17; TEMP 97.6; O2SAT 99
[2023-09-08 06:33] LABS: BASOPHILS # (AUTO) 0.1 X10'3 (0-0.2); BASOPHILS % (AUTO) 0.8 % (0-1); EOSINOPHILS % (AUTO) 0.1 % (0-6); HEMATOCRIT 26.7 % (35.0-45.0); HEMOGLOBIN 8.6 g/dl (12.0-16.0); LYMPHOCYTES # (AUTO) 0.8 X10'3 (1.1-4.8); LYMPHOCYTES % (AUTO) 7.8 % (21-51); MEAN CORPUSCULAR HEMOGLOBIN 29.7 PG (27.0-31.0); MEAN CORPUSCULAR HGB CONC 32.1 g/dL (33.0-36.5); MEAN CORPUSCULAR VOLUME 92.3 FL (78-98); MEAN PLATELET VOLUME 9.2 FL (7.4-10.4); MONOCYTES # (AUTO) 0.8 X10'3 (0-0.9); NEUTROPHILS # (AUTO) 8.8 X10'3 (1.8-7.7); NEUTROPHILS % (AUTO) 83.3 % (42-75); PLATELET COUNT 251 X10'3 (140-440); RED BLOOD COUNT 2.89 X10'6 (4.20-5.60); RED CELL DISTRIBUTION WIDTH 15.8 % (11.5-14.5); WHITE BLOOD COUNT 10.5 X10'3 (4.5-11.0)
[2023-09-08 07:01] LABS: ALANINE AMINOTRANSFERASE 14 U/L (12-78); ALBUMIN 3.1 G/DL (3.4-5.0); ALKALINE PHOSPHATASE 52 IU/L (46-116); ANION GAP 12 (8-16); ASPARTATE AMINO TRANSFERASE 14 U/L (10-37); BILIRUBIN,TOTAL 0.3 MG/DL (0.1-1.0); BLOOD UREA NITROGEN 55 MG/DL (7-18); BUN/CREATININE RATIO 19.2 (10.0-20.0); CALCIUM 7.9 MG/DL (8.5-10.1); CHLORIDE 112 MMOL/L (99-107); CREATININE 2.86 MG/DL (0.40-0.90); GLUCOSE 150 MG/DL (70-104); MAGNESIUM 2.5 MG/DL (1.5-2.4); POTASSIUM 5.4 MMOL/L (3.5-5.1); SODIUM 144 MMOL/L (135-145); TOTAL CARBON DIOXIDE 20.5 MMOL/L (24-32); TOTAL PROTEIN 6.1 G/DL (6.4-8.2); eCRCL 15 ML/MIN; eGFR 16 ML/MIN
[2023-09-08 07:03] LABS: PRO BRAIN NATRIURETIC PEPTIDE > 30000 PG/ML (0-450)
[2023-09-08] MEDS: cyanocobalamin 500mcg tablet PO SCH (08:47)
[2023-09-08] MEDS: cholecalciferol (vitamin D3) 1,000 unit (25mcg) tablet PO SCH (08:47)
[2023-09-08 11:00] VITALS: BP 144/61; PULSE 61; RESP 15; TEMP 97.8; O2SAT 95
[2023-09-08] MEDS: MESSAGE TO PHARMACY PO ONE (13:16)
== END 2023-09-08 17:49 | disposition home or self-care (01) | DRG 266 ==
LOC: PAS IN 09:39 → EDSTATUS 12:30 → PCU 3S 20:00
PROVIDERS: ADMIT Internal Medicine Cardiovascular Disease; ATTEND Internal Medicine Cardiovascular Disease
PROC: 03HY32Z Insertion of Monitoring Device into Upper Artery, Percutaneous Approach (ICD-10-PCS; 2023-09-07)
PROC: B41G1ZZ Fluoroscopy of Left Lower Extremity Arteries using Low Osmolar Contrast (ICD-10-PCS; 2023-09-07)
PROC: B41F1ZZ Fluoroscopy of Right Lower Extremity Arteries using Low Osmolar Contrast (ICD-10-PCS; 2023-09-07)
PROC: B3101ZZ Fluoroscopy of Thoracic Aorta using Low Osmolar Contrast (ICD-10-PCS; 2023-09-07)
PROC: 02RF38N Replacement of Aortic Valve with Zooplastic Tissue, using Rapid Deployment Technique, Percutaneous Approach (ICD-10-PCS; principal; 2023-09-07 15:54)
DX: I35.0 Nonrheumatic aortic (valve) stenosis (principal); Z00.6 Encounter for examination for normal comparison and control in clinical research program; I50.23 Acute on chronic systolic (congestive) heart failure; N18.4 Chronic kidney disease, stage 4 (severe); I13.0 Hypertensive heart and chronic kidney disease with heart failure and stage 1 through stage 4 chronic kidney disease, or unspecified chronic kidney disease; I45.9 Conduction disorder, unspecified; E11.22 Type 2 diabetes mellitus with diabetic chronic kidney disease; I48.0 Paroxysmal atrial fibrillation
CPT/HCPCS: 33361; 36415; 71045; 76937; 80047; 80053; 81001; 82948; 83036; 83735; 83880; 85025; 85347; 85610; 85730; 86885; 86900; 86901; 86920; 87081; 93005; 93308; A4615; A4618; A6258; A6449; C1756; C1760; C1769; C1894; G0378; J0131; J0360; J0690; J1644; J1815; J1940; J2250; J2270; J2370; J2405; J2704; J2720; J3010; J3370; J3490; J7030; J7040; J7050; J7120; Q9967

== ENCOUNTER 2024-05-24 06:18 | Emergency (ER) | payer MEDICARE, BC ==
[~2024-05-24] VITALS: Ht 165.1 cm; Wt 100.0 kg
[~2024-05-24 06:18] MED LIST changes: -ondansetron/PF 4mg/2ml inj IV PRN; -ringers solution, lacted 1,000 ML IV SCH
[2024-05-24 06:22] VITALS: BP 157/70; PULSE 77; RESP 16; TEMP 97.7; O2SAT 99
== END 2024-05-24 10:43 | disposition home or self-care (01) ==
LOC: ER 06:19
DX: S09.8XXA Other specified injuries of head, initial encounter (principal); M79.602 Pain in left arm; M79.605 Pain in left leg; Z88.0 Allergy status to penicillin; Z91.040 Latex allergy status; Z91.011 Allergy to milk products; Z91.013 Allergy to seafood; Z91.018 Allergy to other foods; W18.39XA Other fall on same level, initial encounter; Y93.89 Activity, other specified; Y92.091 Bathroom in other non-institutional residence as the place of occurrence of the external cause; Y99.8 Other external cause status
CPT/HCPCS: 70450; 93005; 99284

== ENCOUNTER 2025-04-30 15:14 | Inpatient (IN) | payer MEDICARE, BC ==
[~2025-04-30] VITALS: Ht 165.1 cm; Wt 93.2 kg
--- NOTE | 2025-04-30 16:36 | Physician Documentation ---
History of Present Illness ~ Chief Complaint: Extremity Swelling Stated Complaint: LEG SWELLING Time Seen by MD: 21:15 Primary Medical Doctor: Dr. Pallavi IVEY This 79-year-old female with a history of kidney disease presents with extremity swelling and shortness of breath, patient was advised by her non destructive evaluation specialist present to the emergency department for admission. Reports symptoms have been progressively worsening over the past four days. Medication Reconciliation Allergies: Coded Allergies: Fish Containing Products (Unverified Allergy, Unknown, 04/30/25) Penicillins (Verified Allergy, Unknown, HIGH TEMP, RASH, VOMIT, 04/30/25) latex (Verified Allergy, Unknown, RASH, ITCHING, 04/30/25) milk (Verified Allergy, Unknown, 04/30/25) shellfish derived (Verified Allergy, Unknown, 04/30/25) Pork/Porcine Containing Products (Verified Adverse Reaction, Severe, 04/30/25) N/V lactose (Unverified Adverse Reaction, Unknown, 08/15/23) Scheduled Amlodipine Besylate (Amlodipine Besylate), 1 TAB PO DAILY, (Reported) Apixaban (Eliquis), 1 TAB PO QAM, (Reported) Cholecalciferol (Vitamin D3) (Vitamin D3), 1 TAB PO DAILY, (Reported) Doxazosin Mesylate (Doxazosin Mesylate), 1 TAB PO DAILY, (Reported) Ergocalciferol (Vitamin D2) (Vitamin D2), 1 CAP PO DAILY, (Reported) Ferrous Gluconate (Ferrous Gluconate), 1 TAB PO DAILY, (Reported) Hydralazine HCl (Hydralazine HCl), 1 TAB PO TID, (Reported) Linagliptin (Tradjenta), 1 TAB PO QPM, (Reported) Metoprolol Succinate (Metoprolol Succinate), 1 TAB PO BID, (Reported) Patiromer Calcium Sorbitex (Veltassa), 1 PKT PO DAILY, (Reported) Sodium Bicarbonate (Antacid), 1 TAB PO Q12H, (Reported) Discontinued Medications Cyanocobalamin (Vitamin B-12) (Vitamin B-12), 1 CAP PO DAILY, (Reported) Discontinued Reason: patient no longer taking Dapagliflozin Propanediol (Farxiga), 5 MG PO DAILY Discontinued Reason: patient no longer taking Evolocumab (Repatha Sureclick), 1 ML SQ Q2W, (Reported) Discontinued Reason: patient no longer taking Furosemide (Furosemide), 20 MG PO BID Discontinued Reason: patient no longer taking Past Medical History Past Medical History: Hypertension, Chronic Kidney Disease, Diabetes Patient History: FH: diabetes mellitus BROTHER FHx: hypertension BROTHER Alcohol Use: None Drug Use: none Lives with: Spouse Lives In: Home Review of Systems ROS As stated above in the HPI, otherwise all systems are reviewed and negative. Physical Exam Vital Signs: Temperature: 97.6, Source: Temporal, Heart Rate: 83, Respiratory Rate: 18, BP: 210/74, Pulse Oximetry: 96, Weight: 93.180 General Appearance VITALS: Reviewed and as above. GENERAL: Alert, nontoxic though ill appearing, no apparent distress. RESPIRATORY: No increased work of breathing, no respiratory distress, speaking in full clear sentences, clear lung sounds in upper arenas, diminished lung sounds in lower arenas CV: Regular rate and rhythm, systolic murmur. 2+ pitting lower extremity edema GI: Soft, nontender, no rebound, no guarding, bowel sounds present Progress Progress Note 2133: I spoke with Dr. Lane on-call non destructive evaluation specialist who agrees to place orders on patient's and will consult with patient's non destructive evaluation specialist Dr. Zapata for Dr. Zapata to see patient tomorrow. Dr. Lane agrees with plan for admission to hospitalist. 2148: I spoke with hospitalist resident Dr. Harvey who kindly accepts patient for admission Results/Orders Results/Orders Orders - MARY PHAM Chest,Single View (04/30/25 21:20) Page Hospitalist (04/30/25 21:32) Fill Out Med Reconciliation (04/30/25 21:32) Cult Urine + [place] [address] (04/30/25 21:52) Completed Orders - MARY PHAMP PBNP (04/30/25 16:34) Cbc/Diff (04/30/25 16:34) CMP (04/30/25 16:34) Chest,Single View (04/30/25 21:20) Electrocardiogram (04/30/25 21:20) Ua W/Microscopic, Cult If Ind (04/30/25 21:15) Medications Received in ER Medications (Trade) Dose Ordered Sig/Lg Route PRN Reason Start Time Stop Time Status Last Admin Dose Admin Ceftriaxone Sodium 50 ml @ 100 mls/hr DAILY IV 04/30/25 22:45 04/30/25 23:16 100 MLS/HR (Lasix inj) 20 mg ONCE ONCE IV 04/30/25 22:45 04/30/25 23:09 DC 04/30/25 23:18 20 MG Vital Signs 04/30/25 04/30/25 04/30/25 04/30/25 15:18 20:37 20:48 20:56 Temp 97.6 Pulse 83 88 77 72 Resp 18 20 18 16 B/P (MAP) 210/74 226/93 (137) 181/61 (101) 176/68 (104) Pulse Ox 96 94 94 96 O2 Flow Rate 0 0 0 04/30/25 04/30/25 21:17 22:00 Pulse 75 Resp 18 19 B/P (MAP) 183/61 (101) Pulse Ox 98 Laboratory Tests Test 04/30/25 16:43 04/30/25 21:15 White Blood Count 6.9 Red Blood Count 2.64 L Hemoglobin 8.0 L Hematocrit 24.2 L Mean Corpuscular Volume 91.8 Mean Corpuscular Hemoglobin 30.4 Mean Corpuscular Hemoglobin Concent 33.1 Red Cell Distribution Width 14.0 Platelet Count 350 Mean Platelet Volume 7.6 Neutrophils (%) (Auto) 67.7 Lymphocytes (%) (Auto) 13.2 L Monocytes (%) (Auto) 8.8 Eosinophils (%) (Auto) 8.4 H Basophils (%) (Auto) 1.9 H Neutrophils # (Auto) 4.7 Lymphocytes # (Auto) 0.9 L Monocytes # (Auto) 0.6 Eosinophils # (Auto) 0.6 Basophils # (Auto) 0.1 CBC Comment Sodium Level 145 Potassium Level 4.4 Chloride Level 115 H Carbon Dioxide Level 20.7 L Anion Gap 9 Blood Urea Nitrogen 62 H Creatinine 4.18 H Estimated GFR/1.73 m2 10 BUN/Creatinine Ratio 14.8 Glucose Level 108 H Calcium Level 8.4 L Total Bilirubin 0.3 Aspartate Amino Transf (AST/SGOT) 14 Alanine Aminotransferase (ALT/SGPT) 11 L Alkaline Phosphatase 74 Pro-B-Type Natriuretic Peptide 8091 H Total Protein 7.2 Albumin 3.1 L Globulin 4.1 Albumin/Globulin Ratio 0.8 L Chemistry Comments Urine Specimen Description Cln catch midstream Urine Color Straw Urine Clarity Cloudy Urine pH 6.0 Urine Specific [place] 1.020 Urine Protein >=300 H Urine Glucose (UA) Negative Urine Ketones Negative Urine Occult Blood Trace-intact Urine Nitrite Negative Urine Bilirubin Negative Urine Urobilinogen 0.2 Urine Leukocyte Esterase Trace H Urine RBC 3-10 Urine WBC 20-30 H Urine Squamous Epithelial Cells Moderate Urine Bacteria 2+ Urine Mucus Few Urine Yeast Few Urine Culture Indicated Indicated Volume Urine Centrifuged 10 ml Urine Eosinophils No eos Urine Osmolality 383 Urine Random Creatinine 56.0 Urine Random Total Protein 419.0 Urine Random Sodium 78 Urine Random Potassium 18 Urine Comment Microbiology Date/Time Source Procedure Growth Status 04/30/25 21:52 Urine Clean Catch Midstream Urine Culture - Preliminary Culture received. Resulted EKG/XRAY/CT/US/VASC/MRI EKG : Additional Comment EKG at 9:34 p.m. interpreted by myself as: Sinus rhythm at a rate of 74, left axis deviation, nonspecific ST-T segment changes Chest X-Ray : Additional Comments Exam: CHEST,SINGLE VIEW CHEST RADIOGRAPH Indication: CP Technique: Single frontal view of the chest was obtained COMPARISON: DI CHEST,SINGLE VIEW on DOS: 09/08/23, DI CHEST,SINGLE VIEW on DOS: 08/25/23, DI CHEST,TWO VIEWS on DOS: 08/16/23, DI CHEST,SINGLE VIEW on DOS: 08/16/23, DI CHEST,SINGLE VIEW on DOS: 08/10/23 FINDINGS: Lines and Tubes: None Lungs: Mild interstitial pulmonary edema. Pleura: No effusion. No pneumothorax. Cardiomediastinal contours: Cardiomegaly Bones: Unremarkable IMPRESSION: 1. Cardiomegaly and mild interstitial pulmonary edema. Electronically Signed by:NEAL CHRISTIE MD Date & Time: 04/30/252151 Dictated by: NEAL CHRISTIE MD Dictation date and time: 04/30/252134 I have reviewed and agree with the radiology report. I have reviewed and interpreted the imaging as: No focal consolidation Medical Decision Making Additional information obtaine: N/A Findings MSE performed in triage and patient returned to ED lobby by nursing staff to await available ED room This 79-year-old female with a history of kidney disease presented to the emergency department with four days of progressively worsening shortness of breath and extremity edema after being seen by her non destructive evaluation specialist who advised her to present to the emergency department due to declined and kidney function. Physical exam demonstrated in his lung sounds in bases and pitting extremity edema. Lab work demonstrated acute on chronic kidney failure with worsened kidney function. Patient will require inpatient admission for further management and evaluation. On-call non destructive evaluation specialist contacted and agrees with plan for admission. Hospitalist team contacted and kindly accepts patient for admission. Differential Dx:Considerations: Include: Cancer, Cellulitis, Congestive heart failure, Compartment syndrome, Contusion, Liver failure, Renal faliure, Superfic thrombophlebitis, Venous insufficiency Departure Time of Disposition: 00:55 Disposition: 09 ADMITTED INPATIENT Admitted to Inpatient Unit: to hospitalist Impression: Primary Impression: Acute on chronic kidney failure Qualified Codes: N17.9 - Acute kidney failure, unspecified; N18.5 - Chronic kidney disease, stage 5 Additional Impressions: Edema of lower extremity Shortness of breath Referrals: NO PRIMARY CARE PROVIDER (PCP) Signature Scribe Signature: No scribe Attestation: The note accurately reflects work and decisions made by me.ALTAGRACIA Dalton 05/01/25 00:56 Parts of this note were created using [employer] science voice recognition software program. While efforts were made to correct any mistakes made by this voice recognition software program, nonsensical phrases may remain in this note. In addition, there may be errors and syntax, grammar, content and spelling. MARY PHAM Apr 30, 2025 16:36
[2025-04-30 16:54] LABS: MEAN PLATELET VOLUME 7.6 FL (7.4-10.4); RED CELL DISTRIBUTION WIDTH 14.0 % (11.5-14.5)
[2025-04-30 17:16] LABS: CREATININE 4.18 MG/DL (0.40-0.90); TOTAL CARBON DIOXIDE 20.7 MMOL/L (24-32); eCRCL 10 ML/MIN; eGFR 10 ML/MIN
[2025-04-30 17:23] LABS: PRO BRAIN NATRIURETIC PEPTIDE 8091 PG/ML (0-450)
--- NOTE | 2025-04-30 21:37 | ELECTROCARDIOGRAPH REPORT ---
[facility] Test Date: 2025-04-30 Test Time: 21:34:09 Pat Name: ZACKARY VARELA Department: [facility]- Patient ID: [id number] Room: [place] [address] Gender: F Green Feed Attendant: : 1945 Requested By: MARY PHAM Order Number: [id number] Reading MD: Dr. Allen Schulz Measurements Intervals [place] Rate: 74 P: 10 FL: 201 QRS: -58 QRSD: 106 T: 71 QT: 428 QTc: 475 Interpretive Statements Sinus rhythm LAD, consider left anterior fascicular block Anterior infarct, old Borderline ST elevation, lateral leads Electronically Signed On 05-06-2025 20:45:[address] Allen Schulz Please click the below link to view image of tracing.
[2025-04-30 21:43] LABS: LEUKOCYTE ESTERASE ,URINE TRACE (Neg); NITRITES, URINE NEGATIVE (Neg); OCCULT BLOOD,URINE TRACE-INTACT (Neg)
[2025-04-30 21:50] LABS: UA COLLECTION TYPE CLN CATCH MIDSTREAM
[2025-04-30] MEDS: PERFLUTREN PROTEIN-A MICROSPHR (Optison) 0.22 MG/ML 3ML VIAL IV ONE (21:50)
[2025-04-30 21:51] LABS: MUCUS STRANDS FEW /LPF (Neg); SQUAMOUS EPITHELIAL CELL,UR MODERATE /LPF (FEW)
[2025-04-30 21:52] LABS: YEAST FEW /HPF (NEGATIVE)
--- NOTE | 2025-04-30 21:55 | RADIOLOGY REPORT ---
CHEST RADIOGRAPH Indication: CP Technique: Single frontal view of the chest was obtained COMPARISON: DI CHEST,SINGLE VIEW on DOS: 09/08/23, DI CHEST,SINGLE VIEW on DOS: 08/25/23, DI CHEST,TWO VIEWS on DOS: 08/16/23, DI CHEST,SINGLE VIEW on DOS: 08/16/23, DI CHEST,SINGLE VIEW on DOS: 08/10/23 FINDINGS: Lines and Tubes: None Lungs: Mild interstitial pulmonary edema. Pleura: No effusion. No pneumothorax. Cardiomediastinal contours: Cardiomegaly Bones: Unremarkable IMPRESSION: 1. Cardiomegaly and mild interstitial pulmonary edema.
[2025-04-30] MEDS ORDERED: ERGO500093 PO (22:26)
[2025-04-30] MEDS ORDERED: HYDR50TA46 PO (22:26)
[2025-04-30] MEDS ORDERED: SODI650T29 PO (22:26)
[2025-04-30] MEDS ORDERED: FERR324T23 PO (22:26)
[2025-04-30] MEDS ORDERED: DOXA4TAB94 PO (22:26)
[2025-04-30] MEDS ORDERED: PATI8.4P PO (22:26)
[2025-04-30] MEDS ORDERED: AMLO10TA13 PO (22:26)
[2025-04-30] MEDS ORDERED: potassium Cl 40MEQ/1/2NS 520ml 520 ML IV PRN (22:45)
[2025-04-30] MEDS ORDERED: magnesium hydroxide 30ml (MOM) UD suspension PO PRN (22:45)
[2025-04-30] MEDS ORDERED: potassium Cl 20 mEq SR tablet PO PRN ×2 (22:45)
[2025-04-30] MEDS ORDERED: magnesium sulf-water 4G/100mL 100 ML IV PRN (22:45)
[2025-04-30] MEDS ORDERED: magnesium sulf-water 2g/50mL 50 ML IV PRN (22:45)
[2025-04-30] MEDS ORDERED: magnesium Cl slow-release 64mg tablet PO PRN (22:45)
[2025-04-30] MEDS ORDERED: mag hydrox/Alum hydrox/simeth 30ml oral suspension PO PRN (22:45)
[2025-04-30 22:48] LABS: OSMOLALITY UA 383.0 MOSM/K (50-1400)
[2025-04-30 23:04] LABS: CREATININE,URINE RANDOM 56.0 MG/DL; TOTAL PROTEIN,URINE RANDOM 419.0 MG/DL
[2025-04-30] MEDS: CefTRIAXone/D5W-Rocephin 1gm 50 ML IV SCH (23:16)
[2025-04-30] MEDS: furosemide 10 MG/1 ML 10ml inj IV ONE (23:18)
[2025-04-30 23:23] LABS: UA EOSINOPHILS NO EOS /HPF
[2025-04-30 23:41] LABS: APTT 25 SECONDS (22-32); INR 1.1 INR
[2025-04-30 23:52] LABS: % IRON SATURATION 13 % (11-46)
[2025-05-01] VITALS (10 sets, daily range): BP systolic 126–182; BP diastolic 49–63; PULSE 70–80; RESP 11–24; TEMP 97.3–98.7; O2SAT 91–97
--- NOTE | 2025-05-01 00:30 | HISTORY AND PHYSICAL-Residence ---
History & Physical Providers to CC Resident Creating Document: VICKIE LOGAN, RES ~ History of Present Illness Primary Medical Doctor: Benny Reason for Admit\Complaint: SWELLING IN THE LEGS, WEAKNESS History of Present Illness This is a 79-year-old he a past medical history is hypertension, diabetes, CHF, aortic stenosis, CKD stage 4 presents to the ER after being referred by her regulatory compliance specialist Dr. Zapata to the ED. Patient endorses feeling very weak and progressive leg swelling since the last four days associated with shortness of breath. Her shortness of breath is associated with orthopnea, PND. Dr. Mathews is her coat finisher. She does not use any oxygen at home and states that she isn't being able to walk since the past few days due to excessive fatigue and weakness. She usually ambulates with the help of a walker at home and her takes care of her. Her recently underwent open heart surgery and is having difficulty taking care of her. Patient is unaware about the etiology of the renal failure but states a grandmother had renal failure. She never underwent dialysis in the past. Patient has puffy face. ED course: Dr. Lane was contacted who ordered urine lytes, renal ultrasound and echocardiogram. The patient was admitted for further workup and management of renal failure. Patient takes Eliquis at home but unsure why she takes it. She endorses that it was prescribed by her coat finisher. Allergies: Coded Allergies: Fish Containing Products (Unverified Allergy, Unknown, 04/30/25) Penicillins (Verified Allergy, Unknown, HIGH TEMP, RASH, VOMIT, 04/30/25) latex (Verified Allergy, Unknown, RASH, ITCHING, 04/30/25) milk (Verified Allergy, Unknown, 04/30/25) shellfish derived (Verified Allergy, Unknown, 04/30/25) Pork/Porcine Containing Products (Verified Adverse Reaction, Severe, 04/30/25) N/V lactose (Unverified Adverse Reaction, Unknown, 08/15/23) Home Medications Home Medications Active Reported Vitamin D2 (Ergocalciferol (Vitamin D2)) 1,250 Mcg (52390 Unit) Capsule 1 Cap PO DAILY Veltassa (Patiromer Calcium Sorbitex) 8.4 Gram Powd.pack 1 Pkt PO DAILY Antacid (Sodium Bicarbonate) 650 Mg Tablet 1 Tab PO Q12H 30 Days Amlodipine Besylate 10 Mg Tablet 1 Tab PO DAILY Ferrous Gluconate 324 Mg (37.5 Mg Iron) Tablet 1 Tab PO DAILY 30 Days Hydralazine HCl 50 Mg Tablet 1 Tab PO TID Doxazosin Mesylate 4 Mg Tablet 1 Tab PO DAILY Vitamin D3 (Cholecalciferol (Vitamin D3)) 25 Mcg (1000 Unit) Tablet 1 Tab PO DAILY 30 Days Tradjenta (Linagliptin) 5 Mg Tablet 1 Tab PO QPM Eliquis (Apixaban) 5 Mg Tablet 1 Tab PO QAM Metoprolol Succinate 25 Mg Tab.sr.24h 1 Tab PO BID Past Medical History Past Medical History hypertension, diabetes, CHF, aortic stenosis, CKD stage 4 Past Surgical History Surgical History Comment Tonsillectomy Family History Family History: FH: diabetes mellitus BROTHER FHx: hypertension BROTHER Past Social History Social History Comment Patient denies smoking, alcohol, drug use. Patient occasionally consumed alcohol socially when she was very young. Smoking: Non-Smoker Alcohol Use: None Drug Use: None Lives with: Spouse Lives In: Home ROS ROS Constitutional: Weakness. No fever, chills, dizziness, weakness, weight gain or loss Eyes: No pain, erythema, discharge, blurring of vision ENT: No sore throat, epistaxis, tinnitus Cardiovascular: Edema, No palpitations, syncope, paroxysmal nocturnal dyspnea Respiratory: No hemoptysis Gastrointestinal: Normal appetite. No nausea, vomiting, diarrhea, constipation, hematemesis, abdominal pain, bloating, melena or fresh blood Genitourinary: No frequency, urgency, nocturia, hematuria or dysuria Musculoskeletal: No arthralgias or myalgias Integumentary: No change in skin, hair, nails. No swelling, bruising, abrasions Neurologic: Tingling in extremities. No headache, neck pain, numbness. Psychiatric: No delusions, depression, loss of interest in normal activity or change in sleep pattern, hallucinations, suicidal ideations Endocrine: No fatigue, weakness, polydipsia, polyuria, change in appetite, heat or cold intolerance, sweating, dry skin Hematological: No bleeding, petechiae, bruising Allergies: No asthma or urticaria Exam Vitals: Vital Signs Date Time Temp Pulse Resp B/P (MAP) Pulse Ox O2 Delivery O2 Flow Rate FiO2 04/30/25 22:00 75 19 183/61 (101) 98 04/30/25 20:56 0 04/30/25 15:18 97.6 General: General: Awake and Alert, no acute distress. Puffy face HEENT: Conjunctiva pink, Sclera clear, Mucus Membranes moist Neck: Supple without masses and tenderness. Resp: Unlabored. Equal breath sounds bilaterally. Mild crackles at lung bases Heart: Regular rhythm, normal S1 and S2, no rub, 3/6 systolic ejection murmur or gallop in right 2nd intercostal space radiating to left side, muffled heart sounds. Abdomen: Soft and non tender no organomegaly. Normal bowel sounds x4 quadrant normoactive. No guarding or rigidity. Extremities: Normal ROM, no swelling, nontender. No cyanosis,clubbing, 4+ pitting edema in bilateral extremities. GRADUATING MACHINE OPERATOR: No gross motor or sensory abnormalities. Generalized weakness in the extremities Power 4/5, cranial nerve examination normal Skin: Warm and Dry. Diagnostic Data Last Recorded Lab Results: 05/01/25 0538 05/01/25 0538 Diagnostic Data: Laboratory Tests Test 04/30/25 23:10 Prothrombin Time 10.9 SECONDS (9.0-12.0) INR International Normalized Ratio 1.1 INR Activated Partial Thromboplast Time 25 SECONDS (22-32) Coagulation Comments Advance Care Planning Advanced Care plannin - 30 Minutes (I spent a total of 17 minutes on reviewing various resuscitative measures/ ACP with the patient at the time of admission. The patient has decided on a full code status) Additional Plan HESHAM on CKD stage 4 secondary to cardiorenal syndrome, other possible cause is UTI Nephrotic syndrome 2/2 Anasarca BUN 62, creatinine 4.18. BNP 8091, FENA 4 suggestive of intrinsic renal failure. Patient never underwent dialysis in the past. Renal ultrasound ordered to rule out post obstructive causes of HESHAM, follow up Patient has 3+ proteinuria. Ordered workup for proteinuria including TSH, ASO, AMADOR, Anca, protein electrophoresis, HIV, HBsAg, complement, GBM, immunofixation, ESR, LDH, cryoglobulin. Follow up Started on renal diet. Consult regulatory compliance specialist Dr. Zapata in the a.m. Avoid contrast and nephrotoxic agents. Follow up with lipid panel, A1c. Coagulation panel WNL Acute on Chronic heart failure with unknown ejection fraction Chest x-ray shows cardiomegaly with mild pulmonary congestion. Patient has 4+ edema, orthopnea, PND. One dose of Lasix IV 60 mg given. Strict I&O. Follow up with the echocardiogram Diuresis per Nephrology recommendations from tomorrow. Patient takes Eliquis as prescribed by Dr. Clements but is unaware the reason why. Restarted home medication Eliquis. Obtain records from coat finisher office in the a.m. UTI Started on Rocephin 1 g IV daily. UA shows cloudy urine, 20-30 urine WBC, trace leukocyte esterase positive, no eosinophils mild metabolic acidosis Continue home medication sodium bicarbonate tablets 650 mg p.o. q.12 hours Anemia of chronic disease secondary to CKD Iron studies show low iron. Restarted home medication ferrous gluconate 324 mg p.o. daily Hypertensive urgency Patient had a blood pressure of 210/74 on admission. IV hydralazine 10 mg p.r.n. ordered. Continue home medications amlodipine, doxazosin, hydralazine 50 mg p.o. t.i.d., metoprolol 25 mg p.o. b.i.d. Avoid Arnav inhibitors, NSAIDs in the view of poor kidney function mild protein calorie malnutrition Albumin 3.1 Type 2 diabetes mellitus Patient takes low-dose linagliptin at home. Blood sugars are within normal limits -108. A1c pending. Initiate insulin if needed Code Status: Full code DVT Prophylaxis: Eliquis Analgesia/Sedation: [place] p.r.n. Lines/Tubes: PIV Gi Prophylaxis: None Nutrition: Renal diet PT: Yes Prognosis: Guarded Disposition: Admit to PCU with telemetry monitoring. Pending proteinuria workup and nephrology consultation. Vickie Harvey MD Internal Medicine Resident PGY-2 Date of Service: May 01, 2025 Billing Provider: HONEY BANKS MD Addendum Attestation I agree with the residents assessment and plan as below: 79 year old female with htn dm and aortic stenosis admitted with LE swelling, edema and SOB Plan: work up for proteinuria renal diet lasix for diuresis ceftriaxone for uti restart iron and sodium bicarb at home dose CCT 55 min using HIPPA compliant A/V technology VICKIE LOGAN, RES May 01, 2025 00:29 HONEY BANKS MD May 01, 2025 09:32
[2025-05-01] MEDS: hydrALAZINE 20mg/ml inj. IV PRN (01:07)
[2025-05-01] MEDS: furosemide 10 MG/1 ML 10ml inj IV ONE (02:17)
[2025-05-01] MEDS: HYDROcodone/acetaminophen 5mg/325mg tablet PO PRN (02:27)
[2025-05-01 06:06] LABS: MEAN PLATELET VOLUME 8.0 FL (7.4-10.4); RED CELL DISTRIBUTION WIDTH 14.0 % (11.5-14.5)
[2025-05-01 07:08] LABS: CHOL/HDL RATIO 5.9 (0.00-4.99); CREATININE 4.08 MG/DL (0.40-0.90); LACTATE DEHYDROGENASE 226 U/L (81-234); LDL CHOLESTEROL 140 MG/DL (50-100); MYOGLOBIN 237.0 ng/ml (9-82); TOTAL CARBON DIOXIDE 20.6 MMOL/L (24-32); eCRCL 10 ML/MIN; eGFR 11 ML/MIN
[2025-05-01] MEDS: K and/or MAG REPLACEMENT MC SCH (07:19)
[2025-05-01] MEDS: docusate sod 100mg capsule PO SCH (07:24)
[2025-05-01] MEDS: metoprolol succinate 25mg (24-HOUR) SR. Tablet PO SCH (07:25)
[2025-05-01] MEDS: HYDROcodone/acetaminophen 10/325mg tab PO PRN (07:27)
[2025-05-01 07:38] LABS: HIV ANTIBODY 1&2 RAPID NON-REACTIVE (Neg)
[2025-05-01] MEDS ORDERED: PERFLUTREN PROTEIN-A MICROSPHR (Optison) 0.22 MG/ML 3ML VIAL IV ONE (07:55)
[2025-05-01] MEDS ORDERED: heparin, porcine 5000 units/ml vial SQ SCH (08:00)
[2025-05-01] MEDS: PATIROMER CALCIUM SORBITEX PO SCH (08:00)
--- NOTE | 2025-05-01 08:06 | CONSULTATION REPORT ---
Consult Providers to CC ~ History of Present Illness Primary Medical Doctor: requested by ER. sent from my office by me Reason for Admit\Complaint: worsening CKD, CHF, fluid overload, resp distress History of Present Illness I saw today in [facility] office, an anxious 79 year old woman, that has gone through a lot, and is generally not for staying in [facility] hospital, nor is she thrilled to learn that she needs aggressive diuresis failing which she is going to become dialysis dependent soon. She has a history of severe aortic stenosis, heart failure with reduced ejection fraction, hypertension, hyperlipidemia, type 2 diabetes, CKD, status post BAV on 08/22/2023 was transferred from [facility] [place] post BAV. She had TTE done post BAV which showed EF of 49% with global hypokinesis. not sure if her EF has dropped in recent times. needs a cardiac work up yet again and admission to hospital for aggressive diuresis with lasix, metolazone and aldactone in acute setting and see how her renal function responds. She is also in nephrotic range proteinuria from her Diabetic nephropathy. Allergies: Coded Allergies: Fish Containing Products (Unverified Allergy, Unknown, 04/30/25) Penicillins (Verified Allergy, Unknown, HIGH TEMP, RASH, VOMIT, 04/30/25) latex (Verified Allergy, Unknown, RASH, ITCHING, 04/30/25) milk (Verified Allergy, Unknown, 04/30/25) shellfish derived (Verified Allergy, Unknown, 04/30/25) Pork/Porcine Containing Products (Verified Adverse Reaction, Severe, 04/30/25) N/V lactose (Unverified Adverse Reaction, Unknown, 08/15/23) Home Medications Home Medications Active Reported Vitamin D2 (Ergocalciferol (Vitamin D2)) 1,250 Mcg (64534 Unit) Capsule 1 Cap PO DAILY Veltassa (Patiromer Calcium Sorbitex) 8.4 Gram Powd.pack 1 Pkt PO DAILY Antacid (Sodium Bicarbonate) 650 Mg Tablet 1 Tab PO Q12H 30 Days Amlodipine Besylate 10 Mg Tablet 1 Tab PO DAILY Ferrous Gluconate 324 Mg (37.5 Mg Iron) Tablet 1 Tab PO DAILY 30 Days Hydralazine HCl 50 Mg Tablet 1 Tab PO TID Doxazosin Mesylate 4 Mg Tablet 1 Tab PO DAILY Vitamin D3 (Cholecalciferol (Vitamin D3)) 25 Mcg (1000 Unit) Tablet 1 Tab PO DAILY 30 Days Tradjenta (Linagliptin) 5 Mg Tablet 1 Tab PO QPM Eliquis (Apixaban) 5 Mg Tablet 1 Tab PO QAM Metoprolol Succinate 25 Mg Tab.sr.24h 1 Tab PO BID Past Medical History Past Medical History HFrEF HTN HLD DM Type 2 CKD Severe S/p Balloon aortic valvuloplasty Past Surgical History Surgical History Comment Bilateral inguinal hernia repair S/P BAV on 08/22/23 Family History Family History: FH: diabetes mellitus BROTHER FHx: hypertension BROTHER Past Social History Social History Comment non smoker, non alcoholic, no drug abuse ROS ROS shortness of breath that has been worsening last few days with worsening edema. very anxious that she may . Also, broke down when i talked about dialysis to her. Exam Vitals: Vital Signs Date Time Temp Pulse Resp B/P (MAP) Pulse Ox O2 Delivery O2 Flow Rate FiO2 05/01/25 07:27 18 05/01/25 07:25 74 05/01/25 02:00 98.2 173/54 (93) 95 Room Air 04/30/25 20:56 0 General: Vital Signs: As above, short of breath, obese built, profound anasarca today General: obese body habitus, in acute resp distress. Skin: No rashes, lumps, ulcers, blisters, purpura or petechiae HEENT: Anicteric sclera, RACHEL Neck: Supple and nontender without enlargement of the thyroid, or lymphadenopathy. Chest: Normal size and shape, no tenderness, few scattered rales bilaterally Heart: Regular. No jugular venous distention, S1 and S2 heard , no gallop Abdomen: Soft and non tender no organomegaly,BS+ Extremities: 4+ pedal edema Neuro: Nonfocal. Diagnostic Data Last Recorded Lab Results: 05/01/25 0538 05/01/25 0538 Diagnostic Data: Laboratory Tests Test 04/30/25 23:10 Prothrombin Time 10.9 SECONDS (9.0-12.0) INR International Normalized Ratio 1.1 INR Activated Partial Thromboplast Time 25 SECONDS (22-32) Coagulation Comments Problems: (1) Anemia Assessment & Plan: due to iron deficiency to severe degree from the recent labs that our office did. I have ordered Venofer for her. epogen will be given as well fo the hb of 8 (2) CKD stage 5 due to type 2 diabetes mellitus Assessment & Plan: approaching dialysis soon. When I broke it to her in office yesterday, she broke down and started crying inconsolably. Lots of anxiety as well, with fear of . She is in multi organ dysfunction as such. 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 However, at this time, we will attempt aggressive diuresis and echocardiogram to find out if anything that dropped her heart function causing this profound anasarca. Salt restriction to 2 g per day. strict Renal ADA diet. dietitian consult please. Do not give NSAIDs, or aluminum based antacids or laxatives. Avoid Morphine and use only dilaudid, if pain meds required that does not respond to the usual ACetaminophen or Sheldon. (3) HESHAM (acute kidney injury) Assessment & Plan: rule out cardiorenal syndrome on top of Dm nephropathy. serology has been sent by residents. will follow it to rule out any underlying myeloma. historically she did not have it. (4) Acute on chronic systolic heart failure Assessment & Plan: echocardiogram has been ordered. (5) Edema of lower extremity Status: Acute Assessment & Plan: fluid restriction to 1 liter per day. No exceptions. REnal ADA diet only. (6) S/P balloon aortic valvuloplasty Assessment & Plan: needs follow up Echocardiogram today (7) Hypertension Assessment & Plan: optimize afterload redcuers. (8) Diabetes mellitus Assessment & Plan: will benefit with Jardiance. follow up HbA1C. DUNIA FRITZ MD May 01, 2025 08:06
[2025-05-01] MEDS ORDERED: furosemide inj 1,000 MG in normal saline 250ml IV soln 150 ML IV SCH (09:00)
[2025-05-01] MEDS: ondansetron/PF 4mg/2ml inj IV PRN (09:55)
[2025-05-01] MEDS: iron sucrose complex injection 200 MG in normal saline 100ml IV soln 100 ML IV SCH (15:46)
[2025-05-01] MEDS: furosemide inj 100 MG in normal saline 100ml IV soln 90 ML IV SCH (15:49)
[2025-05-01] MEDS: EPOETIN ALFA-EPBX 20,000 UNIT/ML 1 ML MDV IV ONE (18:01)
--- NOTE | 2025-05-01 18:43 | CARDIOLOGY REPORT ---
APPROVED REPORT EXAM: Comprehensive 2D, Doppler, and color-flow Echocardiogram. Patient Location: 301 Blood Pressure: 173/54 mmHg Heart Rate: 72 bpm Rhythm: NSR Indications CHF 23 mm S3UR TAVR 09/07/23 Hypertension Diabetes BV MD Pallavi Previous echo 09/08/23 [facility] 45-50% EF ; AVANI 2.19 ; grad 20/12 ; pk v 2.26 ; RVSP 49 ; mod MR m-mod TR 2D Dimensions LA Diam 4.6 cm IVSd 1.5 (0.7-1.1cm) LVDd 5.4 cm PWd 1.4 (0.7-1.1cm) IVSs 2.0 (0.8-1.2cm) LVDs 3.1 (2.5-4.0cm) PWs 1.9 (0.8-1.2cm) LVOT Diameter 2.29 (1.8-2.4cm) LVEF(%) 72.3 (>50%) Ao Asc Diam. 3.53 cm IVC 19.75 mm FS (%) 41.9 % SV 102.9 ml CO 7.4 L/min M-Mode Dimensions MV EPSS 0.6 (<0.5cm) Aortic Valve AoV Peak Alexi. 317.2 cm/s AoV VTI 72.5 cm AO Peak GR. 40.2 mmHg AO Mean GR. 20 mmHg LVOT VTI 35.52 cm LVOT Peak Alexi. 154.5 cm/s AVANI(VTI)/BSA 2.02 cm2/m2 AVANI (VTI) 2.02 cm2 AV DI 0.49 % Mitral Valve MV E Velocity 184.9 cm/s MV Peak Gr. 21 mmHg MV DECEL TIME 272 ms MV A Velocity 154.6 cm/s MV Mean Gr. 10 mmHg MV PHT 88 ms E/A Ratio 1.2 MVA (PHT) 2.50 cm2 MV VMax 229.1 cm/s MV VMean 145.0 cm/s MVA VTI 2.02 cm2 MV VTI 72.5 cm TDI Medial E' P. V 7.12 cm/s E/Medial E' 26.0 Tricuspid Valve TR P. Velocity 335 cm/s RAP ESTIMATE 10 mmHg TR Peak Gr. 45 mmHg RVSP 55 mmHg Pulmonary Vein S1 Velocity 55.8 cm/s D2 Velocity 26.5 cm/s PVa Velocity 33.7 cm/s PVa Duration 72 msec LEFT VENTRICLE LV is normal in size with moderate concentric hypertrophy. Overall systolic function appears normal. Overall LVEF is 65%. RIGHT VENTRICLE RV appears mildly dilated with normal contractility. RVSP is estimated at 55 mmHG. ATRIA Left atrium is moderately dilated. AORTIC VALVE 23 mm Marlow Monse 3 Ultra RESILIA Bioprosthetic TAVR appears well seated. AVANI: 2.02 cmsq; Pkv: 3.17 m/sec; Gradients: 40/20 mmHG. Trace paravalvular leak noted at 1 oclock PSAX TTE. MITRAL VALVE Moderate annular calcification with moderate stenosis. MVA of 1.9 cmsq with a peak/mean gradient of 21/10 mmHG and a peak velocity of 2.29 m/s. Mild mitral regurgitation. TRICUSPID VALVE The tricuspid valve is normal in structure. Moderate tricuspid regurgitation. PULMONIC VALVE The pulmonary valve is normal in structure. Trace pulmonic insufficiency. GREAT VESSELS The aortic root is normal in size. The ascending aorta is measured at 3.5 cm. The IVC is normal in size and collapses >50% with inspiration. PERICARDIUM There is no pericardial effusion. Other Information Study Quality: Adequate Conclusion Overall LVEF is 65%. LV is normal in size with moderate concentric hypertrophy. Overall systolic function appears normal. RV appears mildly dilated with normal contractility. RVSP is estimated at 55 mmHG. 23 mm Marlow Monse 3 Ultra RESILIA Bioprosthetic TAVR appears well seated. AVANI: 2.02 cmsq; Pkv: 3.17 m/sec; Gradients: 40/20 mmHG. Trace paravalvular leak noted at 1 oclock PSAX TTE. Moderate annular calcification with moderate stenosis. MVA of 1.9 cmsq with a peak/mean gradient of 21/10 mmHG and a peak velocity of 2.29 m/s. Mild mitral regurgitation. Moderate tricuspid regurgitation. Trace pulmonic insufficiency. There is no pericardial effusion.
--- NOTE | 2025-05-01 19:40 | PROGRESS NOTE- Residence ---
Progress Note - Resident Providers to CC Resident Creating Document: KAPIL PRESCOTT RES ~ Antibiotic Timeout Antibiotic Ordered?: Yes Subjective Patient was seen and examined at bedside, no acute overnight symptoms. Objective Vital Signs Date Time Temp Pulse Resp B/P (MAP) Pulse Ox O2 Delivery O2 Flow Rate FiO2 05/01/25 15:00 97.9 80 15 126/49 (74) 93 Room Air 05/01/25 08:00 0.0 Result Diagram: 05/01/2553705/01/25537 General: Awake and Alert, no acute distress. Puffy face HEENT: Conjunctiva pink, Sclera clear, Mucus Membranes moist Neck: Supple without masses and tenderness. Resp: Unlabored. Equal breath sounds bilaterally. Mild crackles at lung bases Heart: Regular rhythm, normal S1 and S2, no rub, 3/6 systolic ejection murmur or gallop in right 2nd intercostal space radiating to left side, muffled heart sounds. Abdomen: Soft and non tender no organomegaly. Normal bowel sounds x4 quadrant normoactive. No guarding or rigidity. Extremities: Normal ROM, no swelling, nontender. No cyanosis,clubbing, 4+ pitting edema in bilateral extremities. SENIOR NET APPLICATION DEVELOPER: No gross motor or sensory abnormalities. Generalized weakness in the extremities Power 4/5, cranial nerve examination normal Skin: Warm and Dry. Coagulation Studies Laboratory Tests Test 04/30/25 23:10 Prothrombin Time 10.9 SECONDS (9.0-12.0) INR International Normalized Ratio 1.1 INR Activated Partial Thromboplast Time 25 SECONDS (22-32) Coagulation Comments Advance Care Planning Advanced Care plannin - 30 Minutes Plan Plan 1. Acute Kidney Injury on Chronic Kidney Disease Stage 45 (likely cardiorenal syndrome, diabetic nephropathy, and infection-related) The patient presents with worsening renal function in the setting of known chronic kidney disease stage 45 Blood urea nitrogen is 62 and creatinine is 4.18 Fractional excretion of sodium is 4 % consistent with intrinsic renal failure. Urinalysis reveals cloudy urine with 3 plus proteinuria and 2030 white blood cels Plan: Renal ultrasound pending Awaiting comprehensive serologic workup (TSH, ASO, AMADOR, ANCA, SPEP, UPEP, HIV, HBsAg, complement, GBM, immunofixation, ESR, LDH, cryoglobulin). Renal diet with sodium restriction to 2 grams per day and fluid restriction to 1 liter per day Continue sodium bicarbonate 650 mg orally every 12 hours for metabolic acidosis Avoid nephrotoxic agents, contrast, NSAIDs, JAY inhibitors, and aluminum- containing medications Strict intake and output charting with daily weights Monitor renal function and electrolytes daily Nephrology (Dr. Zapata) following; will guide further diuretic and dialysis considerations 2. Nephrotic Syndrome secondary to Diabetic Nephropathy Patient demonstrates significant proteinuria consistent with diabetic nephropathy Hypoalbuminemia and generalized edema suggest nephrotic-range protein loss Plan: Continue renal ADA diet and fluid restriction as above Lipid panel:T, LDL: 140, cholesterol: 223 Continue management under nephrology for progressive diabetic kidney disease 3. Acute on Chronic Heart Failure with Preserved Ejection Fraction (Cardiorenal Syndrome Type 1) Acute decompensated heart failure with preserved ejection fraction (EF 65%) and evidence of volume overload with anasarca and elevated BNP of 8091 Echocardiogram shows moderate concentric left ventricular hypertrophy, mild right ventricular dilation, mild mitral regurgitation, and moderate tricuspid regurgitation. Right ventricular systolic pressure is 55 mmHg, consistent with pulmonary hypertension Plan: Continue cautious diuresis with Lasix per nephrology guidance Strict monitoring of urine output, daily weights, and volume status Avoid over-diuresis to prevent worsening renal function Maintain renal and sodium-restricted diet Continue close hemodynamic monitoring Echocardiogram shows preserved EF Continue Lasix, metolazone and spironolactone per nephro 4. Status Post aortic balloon valvuloplasty Paroxysmal AFib The patient is status post TAVR with a 23 mm Marlow Monse 3 Ultra Resilia bioprosthetic valve. Echocardiogram shows the valve is well seated with a valve area of 2.02 cm, mean gradient 20 mmHg, and trace paravalvular leak at 1 oclock. No evidence of prosthetic dysfunction Plan: Continue home anticoagulation with [facility] cardiology records for comparison Continue monitoring for any new murmurs or decompensation symptoms 5. Hypertensive Urgency Blood pressure on admission was 210/74 mmHg, now improved. Plan: Continue home antihypertensive regimen: amlodipine, doxazosin, hydralazine 50 mg three times daily, and metoprolol 25 mg twice daily Hydralazine 10 mg intravenous as needed for systolic blood pressure greater than 180 mmHg Monitor blood pressure closely to avoid hypotension that could worsen renal perfusion 6. Urinary Tract Infection Urinalysis shows cloudy urine with 2030 WBCs and trace leukocyte esterase Plan: Continue ceftriaxone 1 g IV daily. Follow urine culture for sensitivity and tailor antibiotics accordingly Maintain hydration within renal restriction limits Monitor temperature and renal parameters 7. Anemia of Chronic Kidney Disease with Iron Deficiency Component Hemoglobin is 8 g/dL. Iron studies reveal low serum iron and low transferrin saturation. Likely anemia secondary to CKD with iron deficiency. Plan: Continue ferrous gluconate 324 mg daily Intravenous Venofer as ordered by nephrology Initiated epoetin therapy for anemia of chronic kidney disease Monitor hemoglobin, hematocrit, ferritin, and transferrin saturation levels 8. Type 2 Diabetes Mellitus, Controlled Patient has well-controlled diabetes with hemoglobin A1c of 5.9%. Currently on linagliptin with stable blood glucose levels. Plan: Monitor blood glucose levels Consider adding empagliflozin once renal function stabilizes, per nephrology recommendation Maintain ADA renal diet 9. Mild Protein-Calorie Malnutrition Serum albumin 3.1 g/dL, indicating mild malnutrition likely secondary to chronic illness and renal protein loss Plan: Nutrition consult for nutritional optimization. Monitor albumin and prealbumin levels Code Status: I spent a total of 17 minutes on reviewing various resuscitative measures with the patient at the time of admission. The patient has decided on a full code status. DVT Prophylaxis: Chad Prescott MD Internal Medicine Resident, PGY-2 Date of Service: May 01, 2025 Billing Provider: NATIVIDAD MENDEZ MD Common Visit Codes: 71113-[id number] INP/OBS CARE(HIGH) Secondary Visit Codes: 74045-[id number] CARE PLAN 30 MINUTES KAPIL PRESCOTT, RES May 01, 2025 19:40 NATIVIDAD MENDEZ MD May 06, 2025 07:27
[2025-05-01 22:40] LABS: CREATININE 4.29 MG/DL (0.40-0.90); PHOSPHORUS 5.3 MG/DL (2.3-4.5); TOTAL CARBON DIOXIDE 22.2 MMOL/L (24-32); eCRCL 10 ML/MIN; eGFR 10 ML/MIN
[2025-05-02] VITALS (12 sets, daily range): BP systolic 128–151; BP diastolic 45–82; PULSE 67–76; RESP 13–20; TEMP 97.4–98.3; O2SAT 93–99
[2025-05-02 04:09] LABS: MEAN PLATELET VOLUME 8.1 FL (7.4-10.4); RED CELL DISTRIBUTION WIDTH 14.2 % (11.5-14.5)
[2025-05-02 05:00] LABS: CREATININE 4.38 MG/DL (0.40-0.90); PHOSPHORUS 5.3 MG/DL (2.3-4.5); TOTAL CARBON DIOXIDE 21.7 MMOL/L (24-32); eCRCL 10 ML/MIN; eGFR 10 ML/MIN
[2025-05-02 06:02] LABS: HBSAG SCREEN Negative (Negative)
--- NOTE | 2025-05-02 08:45 | PROGRESS NOTE ---
Progress Note Dictate Providers to CC ~ Central Line/PICC still needed: No Moody Indications Met/Not Met: F/C Indications Met Antibiotic Ordered?: N/A Subjective Subjective The patient looks like million bucks today. no shortness of breath. excellent diureiss. I have decided to stop the lasix drip and switch to PO. cut back zaroxolyn and cut back aldactone for now. keep her one more day. Hopefully if she feels better, we can discharge her tomorrow and will see her in office in a couple of weeks to decide about dialysis, if she again worsens. EF is 65% now. Objective Vitals Vital Signs Date Time Temp Pulse Resp B/P (MAP) Pulse Ox O2 Delivery O2 Flow Rate FiO2 05/02/25 08:12 74 05/02/25 06:00 97.6 13 145/52 (83) 94 Room Air 05/01/25 08:00 0.0 Lab Results: 05/02/25 0357 05/02/25 0357 Objective Vital Signs: As above General: Normal body habitus, no acute distress. Skin: No rashes, lumps, ulcers, blisters, purpura or petechiae HEENT: Anicteric sclera, RACHEL Neck: Supple and nontender without enlargement of the thyroid, or lymphadenopathy. Chest: Normal size and shape, no tenderness, CTA bilaterally Heart: Regular. No jugular venous distention, S1 and S2 heard , no gallop Abdomen: Soft and non tender no organomegaly,BS+ Extremities: pedal edema regressed quite a bit Neuro: Nonfocal. Coagulation Studies Laboratory Tests Test 04/30/25 23:10 Prothrombin Time 10.9 SECONDS (9.0-12.0) INR International Normalized Ratio 1.1 INR Activated Partial Thromboplast Time 25 SECONDS (22-32) Coagulation Comments Advance Care Planning Advanced Care plannin - 30 Minutes Problem\Assessment\Plan Problems/Diagnosis: (1) Anemia Assessment & Plan: due to iron deficiency to severe degree from the recent labs that our office did. I have ordered Venofer for her. epogen will be given as well fo the hb of 8 (2) CKD stage 5 due to type 2 diabetes mellitus Assessment & Plan: approaching dialysis soon. but will approach it conservatively for now as she is very emotional to even talk about dialysis. and she is showing clinical improvement with itzel edema. She is quite alert and oriented and is not acting uremic. will decide this in [facility] office, during follow up. will hopefully be able to get her out ot her tomorrow. Discussed with . (3) HESHAM (acute kidney injury) Assessment & Plan: rule out cardiorenal syndrome on top of Dm nephropathy. serology has been sent by residents. will follow it to rule out any underlying myeloma. historically she did not have it. (4) Acute on chronic systolic heart failure Assessment & Plan: echocardiogram has been ordered. (5) Edema of lower extremity Assessment & Plan: fluid restriction to 1 liter per day. No exceptions. REnal ADA diet only. (6) S/P balloon aortic valvuloplasty Assessment & Plan: echocardiogram shows 65% EF with good function of the BAV (7) Hypertension Assessment & Plan: optimize afterload redcuers. (8) Diabetes mellitus Assessment & Plan: will benefit with Jardiance. unfortunatley she is allergic to it. follow up HbA1C. DUNIA FRITZ MD May 02, 2025 08:45
[2025-05-02 09:18] LABS: ANTINUCLEAR ANTIBODIES Negative (Negative)
--- NOTE | 2025-05-02 11:12 | RADIOLOGY REPORT ---
CHEST RADIOGRAPH Indication: R/O TB. PLEASE ADDRESS YES OR NO EVIDENCE OF TB. Technique: DI CHEST,SINGLE VIEW Comparison: 04/30/2025 FINDINGS: The cardiac silhouette is unremarkable. The lungs demonstrate perihilar and left basilar airspace opacities. The pulmonary vasculature is prominent. Small left pleural effusion. There is no pneumothorax. Aortic atherosclerotic disease. IMPRESSION: Perihilar left basilar airspace opacities, similar to previous examination. TB infection can not be ruled out. Small left pleural effusion. Pulmonary vascular congestion.
--- NOTE | 2025-05-02 11:38 | RADIOLOGY REPORT ---
RENAL ULTRASOUND History: CKD Comparison: US ABDOMEN RETROPERITONEAL on DOS: 08/23/23 Technique: Multiple real-time sonographic images of the kidney and bladder were obtained in conjunction with Doppler imaging. Findings: Echogenic appearance of the kidneys. The right kidney measures 11.2 cm and demonstrates no evidence of hydronephrosis, perinephric fluid collection, or shadowing stone. The left kidney measures 6.9 cm and demonstrates no evidence of hydronephrosis, perinephric fluid collection, or shadowing stone. Urinary bladder: Decompressed. Ureteral jets nonvisualized Impression: Echogenic kidneys consistent with medical renal disease. Small left kidney measuring 6.9 cm
--- NOTE | 2025-05-02 16:35 | VASCULAR REPORT ---
BILATERAL LOWER EXTREMITY VENOUS DUPLEX REASON FOR EXAMINATION: Bilateral lower extremity pain and edema. COMPARISON: VASC VL RENAL on DOS: 05/02/25, US ABDOMEN RETROPERITONEAL on DOS: 08/23/23, TRANSTHORACIC ECHO (TTE) LIMITED on DOS: 08/22/23, TRANSTHORACIC ECHO (TTE) COMPLETE on DOS: 08/22/23, TRANSTHORACIC ECHO (TTE) COMPLETE on DOS: 08/20/23 TECHNIQUE: Using real-time freeze-frame technique with a high-frequency transducer, multiple longitudinal and transverse sections were obtained. Simultaneous color flow and spectral Doppler imaging was performed. FINDINGS: There is adequate visualization of the deep venous system from knee to groin with no intraluminal filling defects identified. Normal venous compressibility is seen and there is flow augmentation. The calf veins are suboptimally visualized. Color flow Doppler imaging is unremarkable. There is mild subcutaneous edema in the popliteal fossa bilaterally. IMPRESSION: NO EVIDENCE OF FEMOROPOPLITEAL DEEP VENOUS THROMBOSIS.
--- NOTE | 2025-05-02 16:36 | VASCULAR REPORT ---
Indication: Diabetes, hypertension Technique: Real- time ultrasound images of the bilateral lower extremity with grayscale, color, and spectral wave Doppler. Comparison: VASC VL RENAL on DOS: 05/02/25, VASC VL ARTERIAL on DOS: 08/26/23 Findings: Biphasic waveforms right FIELD PRODUCER, SFA, popliteal arteries. Monophasic waveform right posterior tibial, anterior tibial arteries. Biphasic waveforms left FIELD PRODUCER, SFA. Monophasic waveform left popliteal, posterior tibial, anterior tibial arteries. Diminished velocity within the right posterior tibial artery. Peak systolic velocities are as follows (in cm/s): Right: Common femoral artery: 135 Profunda femoris: 159 Proximal superficial femoral: 123 Mid superficial femoral artery: 146 Distal superficial femoral artery: 105 Popliteal artery: 106 Posterior tibial artery: 30 Anterior tibial artery: 147 Left: Common femoral artery: 183 Profunda femoris: 144 Proximal superficial femoral: 198 Mid superficial femoral artery: 167 Distal superficial femoral artery: 106 Popliteal artery: 126 Posterior tibial artery: 58 Anterior tibial artery: 71 Impression: Monophasic waveforms within the bilateral infrapopliteal and left popliteal artery consistent with hemodynamically significant stenoses. CT angiogram of the lower extremities can be obtained to further evaluate.
--- NOTE | 2025-05-02 16:38 | VASCULAR REPORT ---
RENAL DUPLEX ULTRASOUND REASON FOR EXAM: Renal failure COMPARISON: VASC VL VENOUS on DOS: 05/02/25, US ULTRASOUND KIDNEY NON VASC on DOS: 05/02/25, VASC VL ARTERIAL on DOS: 08/26/23, US ABDOMEN RETROPERITONEAL on DOS: 08/23/23, NM NM RENALS on DOS: 08/14/23 TECHNIQUE: Grayscale imaging of both kidneys is performed. This was followed by duplex scanning of arterial inflow and venous outflow of both kidneys. FINDINGS: Image quality is suboptimal. RIGHT: The kidney demonstrates increased echogenicity. The renal artery is not seen. The renal vein is not seen. LEFT: The kidney is not seen. The left renal artery and renal vein are not seen. The urinary bladder is decompressed by a catheter. IMPRESSION: Nondiagnostic study. The renal arteries are not visualized.
--- NOTE | 2025-05-02 17:13 | PROGRESS NOTE- Residence ---
Progress Note - Resident Providers to CC Resident Creating Document: KAPIL PRESCOTT RES ~ Antibiotic Timeout Antibiotic Ordered?: Yes Subjective Patient was seen and examined at bedside, no acute overnight symptoms. Possible discharge tomorrow in a.m.. Arterial ultrasound shows hemodynamically significant stenoses in bilateral infrapopliteal and left popliteal artery, awaiting ISELA. We will consult surgery tomorrow in a.m.. Objective Vital Signs Date Time Temp Pulse Resp B/P (MAP) Pulse Ox O2 Delivery O2 Flow Rate FiO2 05/02/25 15:59 18 05/02/25 15:00 98.0 70 145/58 (87) 99 Room Air 05/02/25 08:00 0.0 Result Diagram: 05/02/2535605/02/25356 General: Awake and Alert, no acute distress. Puffy face HEENT: Conjunctiva pink, Sclera clear, Mucus Membranes moist Neck: Supple without masses and tenderness. Resp: Unlabored. Equal breath sounds bilaterally. Mild crackles at lung bases Heart: Regular rhythm, normal S1 and S2, no rub, 3/6 systolic ejection murmur or gallop in right 2nd intercostal space radiating to left side, muffled heart sounds. Abdomen: Soft and non tender no organomegaly. Normal bowel sounds x4 quadrant normoactive. No guarding or rigidity. Extremities: Normal ROM, no swelling, nontender. No cyanosis,clubbing, 4+ pitting edema in bilateral extremities. VIAL GAUGER: No gross motor or sensory abnormalities. Generalized weakness in the extremities Power 4/5, cranial nerve examination normal Skin: Warm and Dry. Coagulation Studies Laboratory Tests Test 04/30/25 23:10 Prothrombin Time 10.9 SECONDS (9.0-12.0) INR International Normalized Ratio 1.1 INR Activated Partial Thromboplast Time 25 SECONDS (22-32) Coagulation Comments Advance Care Planning Advanced Care plannin - 30 Minutes Plan Plan 1. Acute Kidney Injury on Chronic Kidney Disease Stage 45 (likely cardiorenal syndrome, diabetic nephropathy, and infection-related) The patient presents with worsening renal function in the setting of known chronic kidney disease stage 45 Blood urea nitrogen is 62 and creatinine is 4.18 Fractional excretion of sodium is 4 % consistent with intrinsic renal failure. Urinalysis reveals cloudy urine with 3 plus proteinuria and 2030 white blood cels Plan: Renal ultrasound: Echogenic kidneys consistent with medical renal disease. Small left kidney measuring 6.9 cm Renal artery ultrasound: Nondiagnostic study. The renal arteries are not visualized. Awaiting comprehensive serologic workup (TSH 2.92, AMADOR- negative, HIV, HBsAg (negative) ASO, ANCA, SPEP, UPEP,complement, GBM, immunofixation pending ESR- 95 Renal diet with sodium restriction to 2 grams per day and fluid restriction to 1 liter per day Continue sodium bicarbonate 650 mg orally every 12 hours for metabolic acidosis Avoid nephrotoxic agents, contrast, NSAIDs, JAY inhibitors, and aluminum- containing medications Strict intake and output charting with daily weights Monitor renal function and electrolytes daily Nephrology (Dr. Zapata) following; reduced doses of diuretics: Furosemide to p.o. q.12h, metolazone 2 5 mg daily, spironolactone 50 mg daily 2. Nephrotic Syndrome secondary to Diabetic Nephropathy Hyperlipidemia Patient demonstrates significant proteinuria consistent with diabetic nephropathy Hypoalbuminemia and generalized edema suggest nephrotic-range protein loss Plan: Continue renal ADA diet and fluid restriction as above Lipid panel:T, LDL: 140, cholesterol: 223 Continue management under nephrology for progressive diabetic kidney disease Initiated atorvastatin 40 mg daily Ruled out DVT 3. Acute on Chronic Heart Failure with Preserved Ejection Fraction (Cardiorenal Syndrome Type 1) Acute decompensated heart failure with preserved ejection fraction (EF 65%) and evidence of volume overload with anasarca and elevated BNP of 8091 Echocardiogram shows moderate concentric left ventricular hypertrophy, mild right ventricular dilation, mild mitral regurgitation, and moderate tricuspid regurgitation. Right ventricular systolic pressure is 55 mmHg, consistent with pulmonary hypertension Plan: Continue cautious diuresis with Lasix per nephrology guidance Strict monitoring of urine output, daily weights, and volume status Avoid over-diuresis to prevent worsening renal function Maintain renal and sodium-restricted diet Continue close hemodynamic monitoring Echocardiogram shows preserved EF Continue Lasix, metolazone and spironolactone per nephro 4. Status Post aortic balloon valvuloplasty Paroxysmal AFib The patient is status post TAVR with a 23 mm Marlow Monse 3 Ultra Resilia bioprosthetic valve. Echocardiogram shows the valve is well seated with a valve area of 2.02 cm, mean gradient 20 mmHg, and trace paravalvular leak at 1 oclock. No evidence of prosthetic dysfunction Plan: Continue home anticoagulation with [facility] Prior cardiology records for comparison Continue monitoring for any new murmurs or decompensation symptoms 5. Hypertensive Urgency Blood pressure on admission was 210/74 mmHg, now improved. Plan: Continue home antihypertensive regimen: amlodipine, doxazosin, hydralazine 50 mg three times daily, and metoprolol 25 mg twice daily Hydralazine 10 mg intravenous as needed for systolic blood pressure greater than 180 mmHg Monitor blood pressure closely to avoid hypotension that could worsen renal perfusion 6. Urinary Tract Infection Urinalysis shows cloudy urine with 2030 WBCs and trace leukocyte esterase Plan: Continue ceftriaxone 1 g IV daily. Urine culture: Gram-negative rods, pending final report Maintain hydration within renal restriction limits Monitor temperature and renal parameters 7. Anemia of Chronic Kidney Disease with Iron Deficiency Component Hemoglobin is 8 g/dL. Iron studies reveal low serum iron and low transferrin saturation. Likely anemia secondary to CKD with iron deficiency. Plan: Continue ferrous gluconate 324 mg daily Intravenous Venofer Recieved epoetin therapy for anemia of chronic kidney disease Monitor hemoglobin, hematocrit, ferritin, and transferrin saturation levels 8. Type 2 Diabetes Mellitus, Controlled Patient has well-controlled diabetes with hemoglobin A1c of 5.9%. Currently on linagliptin with stable blood glucose levels. Plan: Monitor blood glucose levels Consider adding empagliflozin once renal function stabilizes, per nephrology recommendation Maintain ADA renal diet 9. Mild Protein-Calorie Malnutrition Serum albumin 3.1 g/dL, indicating mild malnutrition likely secondary to chronic illness and renal protein loss Plan: Nutrition consult for nutritional optimization. Monitor albumin and prealbumin levels 10. Peripheral artery disease Arterial ultrasound showed: Monophasic waveforms within the bilateral infrapopliteal and left popliteal artery consistent with hemodynamically significant stenoses. CT angiogram of the lower extremities can be obtained to further evaluate. Avoiding CT angiogram for now in view of deranged renal parameters Initiated aspirin 81 mg daily for now Continue Chad Ordered ISELA, we will consider consulting surgery tomorrow Code Status: I spent a total of 17 minutes on reviewing various resuscitative measures with the patient at the time of admission. The patient has decided on a full code status. DVT Prophylaxis: Chad Prescott MD Internal Medicine Resident, PGY-2 Date of Service: May 02, 2025 Billing Provider: NATIVIDAD MENDEZ MD Common Visit Codes: [id number] INP/OBS CARE(HIGH) KAPIL PRESCOTT, RES May 02, 2025 17:12 NATIVIDAD MENDEZ MD May 06, 2025 07:28
[2025-05-02] MEDS: Nepro carb steady vanilla 8oz. PO SCH (17:30)
[2025-05-03 02:00] VITALS: BP 149/50; PULSE 71; RESP 15; TEMP 98.3; O2SAT 91
[2025-05-03 06:00] VITALS: BP 149/49; PULSE 71; RESP 17; TEMP 98.8; O2SAT 93
[2025-05-03 06:21] LABS: MEAN PLATELET VOLUME 8.6 FL (7.4-10.4); RED CELL DISTRIBUTION WIDTH 14.2 % (11.5-14.5)
[2025-05-03 06:35] LABS: CREATININE 4.92 MG/DL (0.40-0.90); TOTAL CARBON DIOXIDE 25.0 MMOL/L (24-32); eCRCL 9 ML/MIN; eGFR 9 ML/MIN
[2025-05-03 08:00] VITALS: RESP 15; O2SAT 95
[2025-05-03 08:12] LABS: ANTISTREPTOLYSIN O AB 64.3 IU/mL (0.0-200.0); COMPLEMENT C3, SERUM 142 mg/dL (82-167); COMPLEMENT C4, SERUM 25 mg/dL (12-38); IMMUNOGLOBULIN G, QN, SERUM 820 mg/dL (586-1602); IMMUNOGLOBULIN M, QN, SERUM 41 mg/dL (26-217)
--- NOTE | 2025-05-03 09:03 | PROGRESS NOTE ---
Progress Note Dictate Providers to CC ~ Central Line/PICC still needed: No Blas Indications Met/Not Met: F/C Indications Not Met Antibiotic Ordered?: N/A Subjective Subjective dc blas. stop metolazone and aldactone. She usually runs high K at home. I am extremely uncomfortable to continue aldactone as outpatient in her. worsenign Creatinine was anticipated. need to see her with renal panel and cbc in about a week or two in my office to decide about dialysis vs not She may be ok from [facility]als [facility] to go home today. shall set up a follow up with me. Objective Vitals Vital Signs Date Time Temp Pulse Resp B/P (MAP) Pulse Ox O2 Delivery O2 Flow Rate FiO2 05/03/25 09:35 70 05/03/25 07:30 16 05/03/25 02:00 98.3 149/50 (83) 91 05/02/25 22:00 Room Air 05/02/25 08:00 0.0 Lab Results: 05/03/25 0556 05/03/25 0556 Objective Vital Signs: As above General: Normal body habitus, no acute distress. Skin: No rashes, lumps, ulcers, blisters, purpura or petechiae HEENT: Anicteric sclera, RACHEL Neck: Supple and nontender without enlargement of the thyroid, or lymphadenopathy. Chest: Normal size and shape, no tenderness, CTA bilaterally Heart: Regular. No jugular venous distention, S1 and S2 heard , no gallop Abdomen: Soft and non tender no organomegaly,BS+ Extremities: pedal edema regressed quite a bit Neuro: Nonfocal. Coagulation Studies Laboratory Tests Test 04/30/25 23:10 Prothrombin Time 10.9 SECONDS (9.0-12.0) INR International Normalized Ratio 1.1 INR Activated Partial Thromboplast Time 25 SECONDS (22-32) Coagulation Comments Advance Care Planning Advanced Care plannin - 30 Minutes Problem\Assessment\Plan Problems/Diagnosis: (1) Anemia Assessment & Plan: due to iron deficiency to severe degree from the recent labs that our office did. I have ordered Venofer for her. epogen will be given as well fo the hb of 7.7 at 15K units retacrit today. (2) CKD stage 5 due to type 2 diabetes mellitus Assessment & Plan: approaching dialysis soon. but will approach it conservatively for now as she is very emotional to even talk about dialysis. and she is showing clinical improvement with itzel edema. She is quite alert and oriented and is not acting uremic. will decide this in itzel office, during follow up. will hopefully be able to get her out today. discussed with . (3) HESHAM (acute kidney injury) Assessment & Plan: rule out cardiorenal syndrome on top of Dm nephropathy. serology has been sent by residents. will follow it to rule out any underlying myeloma. historically she did not have it. (4) Acute on chronic systolic heart failure Assessment & Plan: echocardiogram shows an improvement in EF to 65%. heartening. (5) Edema of lower extremity Assessment & Plan: fluid restriction to 1 liter per day. No exceptions. REnal ADA diet only. she has diabetic nephropathy. She needs to be extra cautious with fluid management at home failing which, she will bounce back in no time to this ER. (6) S/P balloon aortic valvuloplasty Assessment & Plan: echocardiogram shows 65% EF with good function of the BAV (7) Hypertension Assessment & Plan: optimize afterload redcuers. (8) Diabetes mellitus Assessment & Plan: will benefit with Jardiance. unfortunatley she is allergic to it. follow up HbA1C. DUNAI FRITZ MD May 03, 2025 09:03
[2025-05-03] MEDS: EPOETIN ALFA-EPBX 20,000 UNIT/ML 1 ML MDV SQ ONE (09:36)
[2025-05-03 11:00] VITALS: BP 127/48; PULSE 68; RESP 17; TEMP 97.9; O2SAT 94
[2025-05-03 13:21] LABS: ATYPICAL PANCA <1:20 titer (Neg:<1:20); CYTOPLASMIC (C-ANCA) <1:20 titer (Neg:<1:20); PERINUCLEAR (P-ANCA) <1:20 titer (Neg:<1:20)
[2025-05-03 15:00] VITALS: BP 102/40; PULSE 65; RESP 14; TEMP 97.4; O2SAT 94
[2025-05-03] MEDS ORDERED: ASPI81TA53 PO (16:56)
[2025-05-03] MEDS ORDERED: FURO40TA4 PO (16:56)
[2025-05-03] MEDS ORDERED: ATOR20TA66 PO (16:56)
[2025-05-03] MEDS ORDERED: METO-395 PO (16:58)
--- NOTE | 2025-05-03 17:25 | VASCULAR REPORT ---
SEGMENTAL PRESSURES/ANKLE-BRACHIAL INDEX REASON FOR EXAMINATION: Ankle swelling. Stenosis. COMPARISON: VASC VL RENAL on DOS: 05/02/25, VASC VL ARTERIAL on DOS: 05/02/25, VASC VL VENOUS on DOS: 05/02/25, VASC VL ARTERIAL on DOS: 08/26/23 TECHNIQUE: Patient evaluation includes blood pressures, ankle-brachial indices, and segmental doppler waveform analysis at rest and post exercise when applicable. Toe brachial indices (TBI) are taken when necessary. FINDINGS: SEGMENTAL BLOOD PRESSURES ARE FOLLOWS: RIGHT: Brachial: 112 mm Hg. Posterior tibial: 60 mm Hg Dorsalis pedis: Noncompressible After calf exercises (provocative functional maneuvers), the right ISELA is moderately depressed with a value of 0.54. LEFT: Brachial: 112 mm Hg. Posterior tibial: Unable to tolerate. Dorsalis pedis: Unable to tolerate. The left ISELA could not be calculated. IMPRESSION: Noncompressible vessels. ISELA may be spuriously normal or even elevated. Right ISELA calculated at 0.54 indicating at least moderate disease. The left ISELA could not be calculated as the patient could not tolerate evaluation. Note: Non-compressible/calcified vessels such as seen in the diabetic/ESRD population render falsely elevated and inaccurate segmental pressures. Correlation with doppler Ultrasound evaluation of the lower extremities is recommended in this population.
[2025-05-03] MEDS ORDERED: LACT1CAP26 PO (17:51)
[2025-05-03] MEDS ORDERED: CEFD300C3 PO (17:51)
--- NOTE | 2025-05-03 17:56 | DISCHARGE SUMMARY-Residence ---
Discharge Summary Providers to CC Resident Creating Document: KAPIL PRESCOTT, RES ~ Discharge Summary Admission Diagnosis: HESHAM on CKD Hospital Course DATE OF ADMISSION: 05/01/2025 DATE OF DISCHARGE: 05/03/2025 Discharge Diagnosis\Comment: 1. Acute Kidney Injury on Chronic Kidney Disease Stage 45 (likely cardiorenal syndrome, diabetic nephropathy, and infection-related) 2. Nephrotic Syndrome secondary to Diabetic Nephropathy Hyperlipidemia 3. Acute on Chronic Heart Failure with Preserved Ejection Fraction (Cardiorenal Syndrome Type 1) 4. Status Post aortic balloon valvuloplasty Paroxysmal AFib 5. Hypertensive Urgency 6. Urinary Tract Infection 7. Anemia of Chronic Kidney Disease with Iron Deficiency Component 8. Type 2 Diabetes Mellitus, Controlled 9. Mild Protein-Calorie Malnutrition 10. Peripheral artery disease- moderate Operations\Procedures: None Consultants: Nephrology- Dr Nik Gregory Complications: None Condition on DC: Stable New Medications: Cefdinir* (Cefdinir*) 300 Mg Capsule 2 CAP PO DAILY for 5 Days, #5 CAP Lactobacillus Rhamnosus (Culturelle) 10 Billion Cell Capsule 1 CAP PO DAILY for 30 Days, #30 CAP 0 Refills Aspirin (Children's Aspirin) 81 Mg Tab.chew 81 MG PO DAILY@0830 for 30 Days, #30 TAB.CHEW Atorvastatin Calcium (Atorvastatin Calcium) 20 Mg Tablet 40 MG PO DAILY for 30 Days, #60 TAB Furosemide (Furosemide) 40 Mg Tablet 40 MG PO BID for 30 Days, #60 TAB Changed Medications: Metoprolol Succinate (Metoprolol Succinate) 25 Mg Tab.sr.24h 1 TAB PO DAILY for 30 Days, #30 TAB.SR (Changed from: BID) Continued Medications: Amlodipine Besylate (Amlodipine Besylate) 10 Mg Tablet 1 TAB PO DAILY Apixaban (Eliquis) 5 Mg Tablet 1 TAB PO QAM Cholecalciferol (Vitamin D3) (Vitamin D3) 25 Mcg (1000 Unit) Tablet 1 TAB PO DAILY for 30 Days, #30 TAB 0 Refills Doxazosin Mesylate (Doxazosin Mesylate) 4 Mg Tablet 1 TAB PO DAILY Ergocalciferol (Vitamin D2) (Vitamin D2) 1,250 Mcg (01412 Unit) Capsule 1 CAP PO DAILY Ferrous Gluconate (Ferrous Gluconate) 324 Mg (37.5 Mg Iron) Tablet 1 TAB PO DAILY for iron for 30 Days, #30 TAB 0 Refills Hydralazine HCl (Hydralazine HCl) 50 Mg Tablet 1 TAB PO TID Linagliptin (Tradjenta) 5 Mg Tablet 1 TAB PO QPM Patiromer Calcium Sorbitex (Veltassa) 8.4 Gram Powd.pack 1 PKT PO DAILY Sodium Bicarbonate (Antacid) 650 Mg Tablet 1 TAB PO Q12H for indigestion for 30 Days, #60 TAB 0 Refills Discharge Summary: Hospital Course The patient is a 65-year-old female with a complex medical history including chronic kidney disease stage 45, diabetic nephropathy, heart failure with preserved ejection fraction, hypertension, paroxysmal atrial fibrillation, type 2 diabetes mellitus, and status post aortic balloon valvuloplasty, who was admitted with acute on chronic renal failure, progressive volume overload, and generalized weakness. On admission, blood pressure was elevated at 210/74 mmHg with laboratory studies showing blood urea nitrogen 62 mg/dL, creatinine 4.18 mg/dL, and hemoglobin 8 g/dL. Workup revealed intrinsic renal failure with a fractional excretion of sodium of 4%, urinalysis with 3+ proteinuria and 2030 WBCs, and echogenic kidneys on ultrasound consistent with medical renal disease. Renal artery Doppler was nondiagnostic. Nephrology was consulted and diagnosed acute kidney injury on chronic kidney disease stage 45, likely secondary to cardiorenal syndrome, diabetic nephropathy, and infection-related injury. Patient was continued on oral sodium bicarbonate, renal diet with 2 g sodium and 1 L fluid restriction, and cautious diuresis with reduced doses of furosemide. Spironolactone and metolazone were discontinued per nephrology prior to discharge. Serologic studies were sent, including AMADOR, ANCA, SPEP, UPEP, and complement levels which were pending. The patient also had evidence of nephrotic syndrome secondary to diabetic nephropathy with hypoalbuminemia, hyperlipidemia, and proteinuria. She was sta rted on atorvastatin 40 mg daily, continued on renal ADA diet, and managed conservatively by nephrology. Acute on chronic heart failure with preserved ejection fraction was noted with an ejection fraction of 65%, elevated BNP of 8091, moderate concentric LVH, mild RV dilation, and pulmonary hypertension (RVSP 55 mmHg). The patient responded to careful diuresis with improvement in d yspnea and edema. Her history of balloon valvuloplasty with a 23 mm Marlow Monse 3 Ultra Resilia valve was reviewed; echocardiogram confirmed normal valve function with a mean gradient of 20 mmHg and only trace paravalvular leak. She remained in sinus r hythm with rate control and continued anticoagulation with Eliquis. Hypertensive urgency on admission improved with resumption of her home antihypertensives including amlodipine, hydralazine, doxazosin, and metoprolol, with IV hydralazine as needed. Urinary tract infection was identified based on urinalysis findings and was treated with ceftriaxone 1 g IV daily. Urine culture grew Serratia, resistant to amoxicillin. Anemia of chronic kidney disease with iron deficiency was managed with ferrous gluconate and intravenous Venofer supplementation, along with ongoing epoetin therapy per nephrology. Hemoglobin remained stable around 8 g/ dL. Her type 2 diabetes mellitus remained well controlled with an A1c of 5.9%, managed with linagliptin. Empagliflozin was deferred until renal function stabilizes. She was placed on a renal ADA diet. The patient also exhibited mild protein-calorie malnutrition related to chronic illness and renal protein loss; nutrition services were consulted for dietary optimization. Workup for peripheral artery disease included arterial duplex ultrasound showing hemodynamically significant stenoses in the bilateral infrapopliteal and left popliteal arteries with monophasic waveforms. ISELA was obtained with a right ISELA of 0.54. CT angiogram was deferred due to renal impairment. Vascular surgery (Dr. Hyman) was consulted and recommended outpatient management. The patient was started on aspirin 81 mg daily in addition to ongoing Eliquis. Renal function and hemodynamics stabilized with current therapy, and she reported improvement in edema and shortness of breath. Imaging: Chest x-ray: Cardiomegaly and mild interstitial pulmonary edema. Echocardiogram: Overall LVEF is 65%. LV is normal in size with moderate concentric hypertrophy. Overall systolic function appears normal. RV appears mildly dilated with normal contractility. RVSP is estimated at 55 mmHG. 23 mm Marlow Monse 3 Ultra RESILIA Bioprosthetic TAVR appears well seated. AVANI: 2.02 cmsq; Pkv: 3.17 m/sec; Gradients: 40/20 mmHG. Trace paravalvular leak noted at 1 oclock PSAX TTE. Moderate annular calcification with moderate stenosis. MVA of 1.9 cmsq with a peak/mean gradient of 21/10 mmHG and a peak velocity of 2.29 m/s. Mild mitral regurgitation. Moderate tricuspid regurgitation. Trace pulmonic insufficiency. There is no pericardial effusion. Arterial ultrasound: Monophasic waveforms within the bilateral infrapopliteal and left popliteal artery consistent with hemodynamically significant stenoses. CT angiogram of the lower extremities can be obtained to further evaluate. Renal ultrasound: Echogenic kidneys consistent with medical renal disease. Small left kidney measuring 6.9 cm Vascular ultrasound: NO EVIDENCE OF FEMOROPOPLITEAL DEEP VENOUS THROMBOSIS. Vascular ultrasound-ISELA: Noncompressible vessels. ISELA may be spuriously normal or even elevated. Right ISELA calculated at 0.54 indicating at least moderate disease. The left ISELA could not be calculated as the patient could not tolerate evaluation. Physical examination today: General: Awake and Alert, no acute distress. Puffy face HEENT: Conjunctiva pink, Sclera clear, Mucus Membranes moist Neck: Supple without masses and tenderness. Resp: Unlabored. Equal breath sounds bilaterally. Heart: Regular rhythm, normal S1 and S2, no rub, 3/6 systolic ejection murmur - right 2nd intercostal space radiating to left side, muffled heart sounds. Abdomen: Soft and non tender no organomegaly. Normal bowel sounds x4 quadrant normoactive. No guarding or rigidity. Extremities: Normal ROM, no swelling, nontender. No cyanosis,clubbing, 2+ pitting edema in bilateral extremities. 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 Power 4/5, cranial nerve examination normal Skin: Warm and Dry. Laboratory Tests Test 05/01/25 21:44 05/02/25 03:57 05/02/25 12:29 05/03/25 05:56 Sodium Level 143 MMOL/L 143 MMOL/L 143 MMOL/L Potassium Level 4.8 MMOL/L 4.7 MMOL/L 4.4 MMOL/L Chloride Level 111 MMOL/L 111 MMOL/L 109 MMOL/L Carbon Dioxide Level 22.2 MMOL/L 21.7 MMOL/L 25.0 MMOL/L Anion Gap 10 10 9 Blood Urea Nitrogen 60 MG/DL 59 MG/DL 60 MG/DL Creatinine 4.29 MG/DL 4.38 MG/DL 4.92 MG/DL Estimated GFR/1.73 m2 10 ML/MIN 10 ML/MIN 9 ML/MIN BUN/Creatinine Ratio 14.0 13.5 12.2 Glucose Level 114 MG/DL 105 MG/DL 88 MG/DL Calcium Level 8.3 MG/DL 8.4 MG/DL 8.1 MG/DL Phosphorus Level 5.3 MG/DL 5.3 MG/DL Magnesium Level 2.4 MG/DL 2.3 MG/DL 2.2 MG/DL Total Bilirubin 0.2 MG/DL 0.2 MG/DL 0.2 MG/DL Aspartate Amino Transf (AST/SGOT) 13 U/L 12 U/L 10 U/L Alanine Aminotransferase (ALT/SGPT) 10 U/L 9 U/L 10 U/L Alkaline Phosphatase 70 IU/L 71 IU/L 65 IU/L Total Protein 6.8 G/DL 6.8 G/DL 6.2 G/DL Albumin 3.0 G/DL 2.9 G/DL 2.7 G/DL Globulin 3.8 G/DL 3.9 G/DL 3.5 G/DL Albumin/Globulin Ratio 0.8 0.7 0.8 Chemistry Comments White Blood Count 8.0 X10'3 9.5 X10'3 Red Blood Count 2.62 X10'6 2.55 X10'6 Hemoglobin 7.9 g/dl 7.7 g/dl Hematocrit 24.2 % 23.4 % Mean Corpuscular Volume 92.3 FL 91.8 FL Mean Corpuscular Hemoglobin 30.1 PG 30.4 PG Mean Corpuscular Hemoglobin Concent 32.6 g/dL 33.1 g/dL Red Cell Distribution Width 14.2 % 14.2 % Platelet Count 316 X10'3 273 X10'3 Mean Platelet Volume 8.1 FL 8.6 FL Neutrophils (%) (Auto) 72.5 % 65.9 % Lymphocytes (%) (Auto) 9.5 % 11.9 % Monocytes (%) (Auto) 10.7 % 12.2 % Eosinophils (%) (Auto) 5.9 % 6.7 % Basophils (%) (Auto) 1.4 % 3.3 % Neutrophils # (Auto) 5.8 X10'3 6.2 X10'3 Lymphocytes # (Auto) 0.8 X10'3 1.1 X10'3 Monocytes # (Auto) 0.9 X10'3 1.2 X10'3 Eosinophils # (Auto) 0.5 X10'3 0.6 X10'3 Basophils # (Auto) 0.1 X10'3 0.3 X10'3 CBC Comment Advise on discharge: -monitor blood pressures at home daily - continue medications as prescribed, hold blood pressure medications amlodipine, hydralazine and metoprolol if systolic blood pressure drops below 100 mmHg - follow up with Dr. Gregory, nephrology, outpatient in 2 weeks - follow up with PCP in 1 week - also your vascular ultrasound shows signs of peripheral artery disease, please follow up outpatient with Dr. Hyman *Problems/Diagnosis: (1) Anemia (2) CKD stage 5 due to type 2 diabetes mellitus (3) HESHAM (acute kidney injury) (4) Acute on chronic systolic heart failure (5) Edema of lower extremity Status: Acute (6) S/P balloon aortic valvuloplasty (7) Hypertension (8) Diabetes mellitus Total Time Spent on D/C: > 30 Minutes Date of Service: May 03, 2025 Billing Provider: NATIVIDAD MENDEZ MD Common Visit Codes: 83294-RNE/OBS DISCH DAY >30min KAPIL PRESCOTT, RES May 03, 2025 17:54 NATIVIDAD MENDEZ MD May 06, 2025 07:28
[2025-05-06 05:30] LABS: HEP B CORE AB, TOT Negative (Negative)
[2025-05-10 11:24] LABS: A/G RATIO 1.0 (0.7-1.7); BETA GLOBULIN 1.1 g/dL (0.7-1.3); GLOBULIN, TOTAL 3.1 g/dL (2.2-3.9); M-SPIKE Not Observed g/dL (Not Observed)
== END 2025-05-03 17:37 | disposition home health service (06) | DRG 291 ==
LOC: ER 15:14 → ED HOLD 22:59 → PCU 3S 05-01 00:55
PROVIDERS: ADMIT Internal Medicine; ATTEND Family Medicine
DX: I13.2 Hypertensive heart and chronic kidney disease with heart failure and with stage 5 chronic kidney disease, or end stage renal disease (principal); I50.33 Acute on chronic diastolic (congestive) heart failure; N17.9 Acute kidney failure, unspecified; N18.5 Chronic kidney disease, stage 5; N39.0 Urinary tract infection, site not specified; E44.1 Mild protein-calorie malnutrition; D50.9 Iron deficiency anemia, unspecified; E11.22 Type 2 diabetes mellitus with diabetic chronic kidney disease; E78.5 Hyperlipidemia, unspecified; E11.65 Type 2 diabetes mellitus with hyperglycemia; Z91.040 Latex allergy status; Z91.0110 Allergy to milk products, unspecified; Z91.014 Allergy to mammalian meats; Z91.013 Allergy to seafood; Z79.01 Long term (current) use of anticoagulants; Z79.899 Other long term (current) drug therapy
CPT/HCPCS: 36415; 71045; 76770; 80053; 80061; 80069; 81001; 82550; 82570; 82595; 82728; 82784; 82948; 83036; 83540; 83550; 83605; 83615; 83735; 83874; 83880; 83935; 84133; 84145; 84155; 84156; 84165; 84300; 84439; 84443; 84466; 85025; 85610; 85651; 85730; 86038; 86060; 86140; 86160; 86256; 86334; 86703; 86704; 86706; 87040; 87077; 87081; 87088; 87186; 87207; 87340; 93005; 93306; 93922; 93925; 93970; 93975; 96374; 97116; 97161; 97530; 99285; A4314; G0378; J0360; J0696; J1756; J1938; J2405; J7040; Q4081